=== PATIENT | male | born 1995 | race Two or more races ===

== ENCOUNTER → 2019-08-04 | Outpatient (CLI) | payer MEDICAID, SELFPAY | LOC: M OUTALCOH 08:57 | PROVIDERS: ATTEND Psychiatry & Neurology Psychiatry | DX: Z03.89 Encounter for observation for other suspected diseases and conditions ruled out (principal) ==

== ENCOUNTER 2019-08-18 15:42 | Outpatient (RCR) | payer MEDICAID | END 2019-09-15 | LOC: M OUTALCOH 15:42 | PROVIDERS: ATTEND Psychiatry & Neurology Psychiatry | DX: Z03.89 Encounter for observation for other suspected diseases and conditions ruled out (principal); F17.200 Nicotine dependence, unspecified, uncomplicated ==

== ENCOUNTER → 2019-10-05 | Outpatient (CLI) | payer MEDICAID | LOC: M OUTALCOH 08:07 | PROVIDERS: ATTEND Psychiatry & Neurology Addiction Medicine | DX: Z03.89 Encounter for observation for other suspected diseases and conditions ruled out (principal) ==

== ENCOUNTER → 2019-10-11 | Outpatient (REF) | payer MEDICAID ==
[2019-10-11 21:47] LABS: INFLUENZA A AMPLIFICATION NEGATIVE (NEGATIVE); INFLUENZA B AMPLIFICATION POSITIVE (NEGATIVE)
== END ==
LOC: M LAB REF 09:58
PROVIDERS: ATTEND Physician Assistant Medical
DX: R50.9 Fever, unspecified (principal)

== ENCOUNTER 2019-10-14 08:42 | Outpatient (RCR) | payer MEDICAID | END 2019-10-16 | LOC: M OUTALCOH 08:42 | PROVIDERS: ATTEND Psychiatry & Neurology Addiction Medicine | DX: Z03.89 Encounter for observation for other suspected diseases and conditions ruled out (principal); F17.200 Nicotine dependence, unspecified, uncomplicated ==

== ENCOUNTER 2020-08-22 14:02 | Emergency (ER) | payer MEDICAID, OTHER ==
[~2020-08-22] VITALS: Ht 170.2 cm; Wt 79.5 kg
[2020-08-22] MEDS ORDERED: CLAR10CA3 PO (14:16)
[2020-08-22] MEDS ORDERED: LIDOCAINE 1% SDV 5ML VIAL DILUENT ONE (15:00)
[2020-08-22] MEDS ORDERED: cefTRIAXone SOD 250MG VIAL (J0696 PER 250MG) IM ONE (15:00)
[2020-08-22] MEDS ORDERED: AZITHROMYCIN 250MG TABLET PO ONE (15:00)
[2020-08-22 15:55] VITALS: BP 127/73
[2020-08-22 18:19] LABS: CHLAMYDIA DNA AMPLIFICATION NEGATIVE (NEGATIVE); GC DNA AMPLIFICATION POSITIVE (NEGATIVE)
== END 2020-08-22 15:57 | disposition home or self-care (01) ==
LOC: M ED 14:02
DX: Z20.2 Contact with and (suspected) exposure to infections with a predominantly sexual mode of transmission (principal); R30.0 Dysuria; F17.200 Nicotine dependence, unspecified, uncomplicated
CPT/HCPCS: 81001; 87086; 87491; 87591; 96372; 99283; J0696

== ENCOUNTER 2020-09-23 10:43 | Emergency (ER) | payer OTHER ==
[~2020-09-23] VITALS: Ht 162.6 cm; Wt 87.9 kg
[2020-09-23 10:43] VITALS: BP 122/88
[~2020-09-23 10:43] MED LIST: CLAR10CA3 PO
--- NOTE | 2020-09-23 11:31 | REP ---
INDICATION: pain, swelling left glut, r/o abscess COMPARISON: None. TECHNIQUE: Transabdominal ultrasound examination using linear high-frequency transducer. FINDINGS: Directed ultrasound examination overlying the area of maximal swelling in the left gluteal region demonstrates 2.1 x 1.3 x 0.8 cm complex hypoechoic collection consistent with small abscess. Surrounding subcutaneous edema noted. IMPRESSION: Subcutaneous edema with small complex fluid collection likely representing abscess. <Electronically signed by Boone Mckinney > 09/23/20 1126
[2020-09-23] MEDS ORDERED: LIDOCAINE 1% MDV 20ML VIAL SC ONE (12:30)
[2020-09-23] MEDS ORDERED: DOXY100C37 PO (13:27)
[2020-09-23] MEDS ORDERED: DOXYCYCLINE HYCLATE 100MG TABLET PO ONE (13:30)
== END 2020-09-23 13:42 | disposition home or self-care (01) ==
LOC: M ED 10:43
DX: L02.31 Cutaneous abscess of buttock (principal); Z79.899 Other long term (current) drug therapy

== ENCOUNTER 2020-09-26 14:31 | Inpatient (IN) | payer OTHER ==
[~2020-09-26] VITALS: Ht 162.6 cm; Wt 77.5 kg
[~2020-09-26 14:31] MED LIST changes: +DOXY100C37 PO
[2020-09-26] MEDS ORDERED: LIDOCAINE 2% MDV 20ML VIAL SC ONE (15:30)
--- OUTSIDE RECORDS SUMMARY | 2020-09-26 15:34 | CCD ---
Author Author [facility] Organization [facility] Address Unknown Phone Unavailable Care Team Providers Care Wildlife Photographer Name Role Phone Tavon Garcia Glenn PA-C Unavailable Unavailable JoseTavon Glenn PA-C Unavailable Unavailable Jose, Tavon Glenn PA-C Unavailable Unavailable Jose, Tavon Glenn PA-C Unavailable Unavailable Jose, Tavon Glenn PA-C Unavailable Unavailable JoseTavon Glenn PA-C Unavailable Unavailable Jose, J Glenn PA-C Unavailable Unavailable Jose J Glenn PA-C Unavailable Unavailable Jose, J Glenn PA-C Unavailable Unavailable Jose, J Glenn PA-C Unavailable Unavailable Jose, J Glenn PA-C Unavailable Unavailable Jorje Whitley MD Unavailable Unavailable Jorje Whitley MD Unavailable Unavailable Jorje Whitley MD Unavailable Unavailable Jorje Whitley MD Unavailable Unavailable Jorje Whitley MD Unavailable Unavailable Jorje Whitley MD Unavailable Unavailable Jorje Whitley MD Unavailable Unavailable Jorje Whitley MD Unavailable Unavailable Jorje Whitley MD Unavailable Unavailable Jorje Whitley MD Unavailable Unavailable Jorje Whitley MD Unavailable Unavailable Jorje Whitley MD Unavailable Unavailable Jorje Whitley MD Unavailable Unavailable Jorje Whitley MD Unavailable Unavailable Jorje Whitley MD Unavailable Unavailable Roberta Whitley Moid Unavailable Unavailable WhitleyRoberta Moid MD Unavailable Unavailable WhitleyRoberta Moid Unavailable Unavailable WhitleyRoberta Moid Unavailable Unavailable WhitleyRoberta Moid Unavailable Unavailable WhitleyRoberta Moid Unavailable Unavailable Whitley Roberta Moid MD Unavailable Unavailable Whitley, Roberta Moid MD Unavailable Unavailable Whitley, Roberta Moid MD Unavailable Unavailable WhitleyJessicaul Moid Unavailable Unavailable Whitley, Roberta Moid MD Unavailable Unavailable Whitley, Roberta Moid MD Unavailable Unavailable Whitley, Roberta Moid MD Unavailable Unavailable Whitley Roberta Moid MD Unavailable Unavailable Whitley, Roberta Moid MD Unavailable Unavailable Whitley, Roberta Moid MD Unavailable Unavailable WhitleyRoberta Moid Unavailable Unavailable Roberta Whitley Moid Unavailable Unavailable Whitley Roberta Moid MD Unavailable Unavailable WhitleyRoberta Moid MD Unavailable Unavailable Whitley, Roberta Moid MD Unavailable Unavailable Roberta Whitley Moid MD Unavailable Unavailable Roberta Whitley Moid MD Unavailable Unavailable Roberta Whitley Moid MD Unavailable Unavailable WhitleyRoberta Moid MD Unavailable Unavailable WhitleyRoberta Moid MD Unavailable Unavailable Whitley, Roberta Moid MD Unavailable Unavailable Roberta Whitley Moid MD Unavailable Unavailable Roberta Whitley Moid MD Unavailable Unavailable Roberta Whitley Moid Unavailable Unavailable Roberta Whitley Moid MD Unavailable Unavailable Roberta Whitley Moid Unavailable Unavailable Jessica Whitleyul Moid MD Unavailable Unavailable Roberta Whitley Moid Unavailable Unavailable Roberta Whitley Moid Unavailable Unavailable Roberta Whitley Moid MD Unavailable Unavailable Roberta Whitley Moid Unavailable Unavailable WhitleyJessicaul Moid MD Unavailable Unavailable WhitleyJessicaul Moid MD Unavailable Unavailable Whitley, Roberta Moid MD Unavailable Unavailable WhitleyJessicaul Moid MD Unavailable Unavailable Jessica Whitleyul Moid Unavailable Unavailable Jessica Whitleyul Moid Unavailable Unavailable Jessica Whitleyul Moid Unavailable Unavailable WhitleyJessicaul Moid MD Unavailable Unavailable Jessica Whitleyul Moid Unavailable Unavailable Whitley, Roberta Moid MD Unavailable Unavailable Roberta Whitley Moid Unavailable Unavailable Gutierrez, Roberta Moid Unavailable Unavailable GRABIEL CHOE MD Unavailable Unavailable MARKWITH, GRABIEL MD Unavailable Unavailable MARKWITH, GRABIEL MD Unavailable Unavailable MARKWITH, GRABIEL MD Unavailable Unavailable MARKWITH, GRABIEL MD Unavailable Unavailable MARKWITH, GRABIEL MD Unavailable Unavailable MARKWITH, GRABIEL MD Unavailable Unavailable MARKWITH, GRABIEL MD Unavailable Unavailable MARKWITH, GRABIEL MD Unavailable Unavailable MARKWITH, GRABIEL MD Unavailable Unavailable MARKWITH, GRABIEL MD Unavailable Unavailable MARKWITH, GRABIEL MD Unavailable Unavailable MARKWITH, GRABIEL MD Unavailable Unavailable MARKWITH, GRABIEL MD Unavailable Unavailable MARKWITH, GRABIEL MD Unavailable Unavailable MARKWITH, GRABIEL MD Unavailable Unavailable MARKWITH, GRABIEL MD Unavailable Unavailable MARKWITH, GRABIEL MD Unavailable Unavailable MARKWITH, GRABIEL MD Unavailable Unavailable MARKWITH, GRABIEL MD Unavailable Unavailable MARKWITH, GRABIEL MD Unavailable Unavailable MARKWITH, GRABIEL MD Unavailable Unavailable MARKWITH, GRABIEL MD Unavailable Unavailable MARKWITH, GRABIEL MD Unavailable Unavailable MARKWITH, GRABIEL MD Unavailable Unavailable MARKWITH, GRABIEL MD Unavailable Unavailable MARKWITH, GRABIEL MD Unavailable Unavailable MARKWITH, GRABIEL MD Unavailable Unavailable MARKWITH, GRABIEL MD Unavailable Unavailable MARKWITH, GRABIEL MD Unavailable Unavailable MARKWITH, GRABIEL MD Unavailable Unavailable MARKWITH, GRABIEL MD Unavailable Unavailable MARKWITH, GRABIEL MD Unavailable Unavailable Re-disclosure Warning The records that you are about to access may contain information from federally-assisted alcohol or drug abuse programs. If such information is present, then the following federally mandated warning applies: This information has been disclosed to you from records protected by federal confidentiality rules (42 CFR part 2). The federal rules prohibit you from making any further disclosure of this information unless further disclosure is expressly permitted by the written consent of the person to whom it pertains or as otherwise permitted by 42 CFR part 2. A general authorization for the release of medical or other information is NOT sufficient for this purpose. The Federal rules restrict any use of the information to criminally investigate or prosecute any alcohol or drug abuse patient.The records that you are about to access may contain highly sensitive health information, the redisclosure of which is protected by Article 27-F of the [facility] Public Health law. If you continue you may have access to information: Regarding HIV / AIDS; Provided by facilities licensed or operated by the [facility] Office of Mental Health; or Provided by the [facility] Office for People With Developmental Disabilities. If such information is present, then the following [facility] mandated warning applies: This information has been disclosed to you from confidential records which are protected by state law. State law prohibits you from making any further disclosure of this information without the specific written consent of the person to whom it pertains, or as otherwise permitted by law. Any unauthorized further disclosure in violation of state law may result in a fine or prison sentence or both. A general authorization for the release of medical or other information is NOT sufficient authorization for further disc losure. Encounters Encounter Providers Location Date Indications Data Source(s ) Outpatient 01/20/2020 06:07:00 AM EDT [facility] Outpatient 01/01/2020 05:18:00 AM EDT [facility] Emergency Attender: Glenn YAN-CConsultant: Serenity burgos MD 11/15/2019 12:47:00 PM EST - 11/15/2019 02:07:00 PM EST [facility] Patient discharged. Outpatient Attender: GRABIEL CHOE MD Physical Therapy 01:00:00 PM EST [facility] ([facility] ) Medications Medication Brand Name Start Date Product Form Dose Route Admi nistrative Instructions Pharmacy Instructions Status Indications Reaction Description Data Source(s) 100 mg 09/23/2020 12:00:00 AM EST capsule 19 TAKE ONE CAPSULE BY MOUTH EVERY 12 HOURS TAKE ONE CAPSULE BY MOUTH EVERY 12 HOURS SOLD: 09/23/2020 [facility] 800-160 mg 04/09/2020 12:00:00 AM EDT tablet 20 TAKE ONE TABLET BY MOUTH TWICE A DAY FOR 10 DAYS TAKE ONE TABLET BY MOUTH TWICE A DAY FOR 10 DAYS SOLD: 04/09/2020 [facility] 100 mg 01/10/2020 12:00:00 AM EDT capsule 20 TAKE ONE CAPSULE BY MOUTH TWICE A DAY TAKE ONE CAPSULE BY MOUTH TWICE A DAY SOLD: 01/10/2020 [facility] 500 mg 01/05/2020 12:00:00 AM EDT capsule 20 TAKE 1 CAPSULE [500MG] BY MOUTH EVERY 8 HOURS TAKE 1 CAPSULE [500MG] BY MOUTH EVERY 8 HOURS SOLD: 01/05/2020 [facility] Oseltamivir 75 MG Oral Capsule OSELTAMIVIR PHOSPHATE 10/12/2019 12:00:00 AM EST capsule 10 TAKE ONE CAPSULE BY MOUTH TWICE A DAY FOR 5 DAYS TAKE ONE CAPSULE BY MOUTH TWICE A DAY FOR 5 DAYS SOLD: 10/12/2019 [facility] 800-160 mg 09/08/2019 12:00:00 AM EST tablet 20 TAKE ONE TABLET BY MOUTH EVERY 12 HOURS FOR 10 DAYS TAKE ONE TABLET BY MOUTH EVERY 12 HOURS FOR 10 DAYS SOLD: 09/08/2019 [facility] Acetaminophen 325 MG / Oxycodone Hydrochloride 5 MG Or al Tablet [Percocet] Percocet 08/25/2019 12:00:00 AM EST ORAL active [facility] ([facility]) Ibuprofen 600 MG Oral Tablet Ibuprofen 08/25/2019 12:00:00 AM EST ORAL active [facility] ([facility]) 5-325 mg 08/25/2019 12:00:00 AM EST tablet 30 TAKE ONE TABLET BY MOUTH EVERY 4 HOURS NEEDED FOR PAIN AFTER SURGERY MAXIMUM DAILY DOSE = 6 TABLETS TAKE ONE TABLET BY MOUTH EVERY 4 HOURS NEEDED FOR PAIN AFTER SURGERY MAXIMUM DAILY DOSE = 6 TABLETS SOLD: 08/26/2019 [facility] 800-160 mg 07/28/2019 12:00:00 AM EST tablet 20 TAKE ONE TABLET BY MOUTH EVERY 12 HOURS TAKE ONE TABLET BY MOUTH EVERY 12 HOURS SOLD: 07/28/2019 [facility] Insurance Providers Payer name Policy type / Coverage type Policy ID Covered democrat ID Covered democrat's relationship to st Policy St Plan Information [facility] [id number] SP [id number] [facility] [id number] SP [id number] [facility]) O [id number] S [id number] [facility] COMMUNITY PLAN XIX [id number] 18 [id number] SELF PAY ONLY NONE SP NONE MEDICAID [id number] SP [id number] MEDICAID [id number] SP [id number] SELF PAY ONLY [id number] SP [id number] [facility] I [id number] Self [id number] Medicaid Dental S [id number] S [id number] Managed Care [facility] P [id number] S [id number] [facility] I [id number] Self [id number] [facility] COMMUNITY PLAN [facility] [id number] SP [id number] [employer] O [id number] S 01 [id number] [facility]) O [id number] S [id number] MEDICAID [id number] SP [id number] [facility] COMMUNITY [facility] [id number] SP [id number] [facility] O [id number] S [id number] Medicaid Dental S [id number] S [id number] MEDICAID [id number] SELF [id number] Problems, Conditions, and Diagnoses Code Display Name Description Problem Type Effective Dates Data Source(s) M436 Torticollis Torticollis Diagnosis 11/15/2019 12:47:00 PM [facility] M542 Cervicalgia Cervicalgia Diagnosis 11/15/2019 12:47:00 PM [facility] Surgeries/Procedures Procedure Description Date Indications Data Source(s) Arthroscopy Knee W/Meniscus Repair (Medial Or Lateral) 08/26/2019 12:00:00 AM EST [facility] ([facility]) Unlisted Procedure, Arthroscopy 08/26/2019 12:00:00 AM EST [facility] ([facility]) MRI Lower Extremity Any Joint 07/30/2019 12:00:[address] [facility] ([facility]) Results ID Date Data Source [id number] 11/16/2019 09:41:00 AM [facility] [address] [place] [address] PHONE: [phone] FAX: [phone] Name .................. : CHEIKH Serrano Acct Number.................. : [id number] ROOM. ................. : [id number] Number ................... : [id number] Stay type ............. : E/R Discharge Date......... ... : Admit Date ......... : 11/15/19 Admit Phys .................... : JOSE NIRAJ Date of ....... : 1995 Family Phys ................... : GUTIERREZ HASKINS Phone .................. : [phone] Age ................................ : 24 Film# .................. .:[id number] Sex ................................. : M Unsigned transcriptions are preliminary reports and do not represent a medical or legal document SPINE CERVICAL AP & LAT [id number] COMPLETE:11/15/19 12:47 75885 Reason(s): Neck Pain CERVICAL SPINE SERIES: HISTORY: Neck pain. FINDINGS: Routine views show no evidence of fracture or dislocation. The vertebral bodies and disc spaces are well maintained. The pedicles and posterior elements are intact. Oblique views show no encroachment on the neural foramen. The paraspinal soft tissues appear normal. IMPRESSION: Negative cervical spine. Electronically Reviewed and Signed By Marcin Louis MD , 11/16/19 09:41, S Transcribe Initials: BRANT , Transcribe Date: 11/15/19 13:38, Dictation Date: Copy for: JOSESITO SMALLWOOD via fax Copy for: JOSE Montes De Oca via fax Copy for: EMERGENCY DEPT via [facility] Copy for: 710 MED REC DISCHARGED Page 1 of 1 Name Value Range Interpretation Code Description Data Coleen rce(s) Supporting Document(s) ID Date Data Source [id number] 11/15/2019 12:47:00 PM EST [facility] 1 OrderSheet [facility] Emergency Department [address] [place] [address] Phone #: [phone]- [phone] 11/15/2019 12:23 Patient: ELÍAS LOUIS Sex: M : 1995 Age: 24yWEIGHT:79.3 kg HEIGHT:65 inches BMI:29.1ALLERGIES: No Known Drug AllergyCHIEF COMPLAINT: neck painDIAGNOSIS: TorticollisLAB ORDERSOrder Description Priority Entered Acknowledged InitialedDIAGNOSTIC STUDY ORDERSOrder Description Priority Entered Acknowledged InitialedSpine Cervical AP STAT 12:46 11/15/2019 12:46 Jackie, Anant Monroy R.N.(Oxygen?(No)) PA; Reason for Study: Neck PainMEDICATION/IV/DRIP/FLUID ORDERSOrder Description Priority Entered Acknowledged InitialedToradol IM 30 mg 12:46 11/15/2019 12:55 Jackie, Jesica Anant YAN;Valium PO 5 mg 12:46 11/15/2019 12:53 Jackie, December Anant YAN;predniSONE PO 60 12:46 11/15/2019 12:53 Jackie, Decembermg Anant YAN;GENERAL ORDERSOrder Description Priority Entered Acknowledged Initialed[Electronically signed by Ayleen Schmid R.N. (14:19 11/15/2019)][Electronically signed by Anant Monroy (20:15 11/15/2019)][Electronically locked by Ayleen Schmid R.N. (14:19 11/15/2019)] Name Value Range Interpretation Code Description Data Coleen rce(s) Supporting Document(s) ID Date Data Source [id number] 11/15/2019 12:47:00 PM EST [facility] 1 Medication Reconciliation Report [facility] Emergency Department [address] [place] [address] Phone #: ext- [phone] 11/15/2019 12:23 Patient: ELÍAS LOUIS Sex: M : 1995 Age: 24yWeight: 79.3 kgHeight/Length: 65 in.BMI: 29.1ALLERGIES: No Known Drug AllergyThe patient's Home Medications are listed below:NONE.The source(s) of the original Home Medication information:Not obtained.The following Medications were given to the patient in the Emergency Department:Valium [PO] PO 5 mg, administered: 11/15/2019 12:53:00 PMPrednisone [PO] PO 60 mg, administered: 11/15/2019 12:53:00 PMToradol [IM] IM 30 mg, administered: 11/15/2019 12:55:00 PMThe following Medications were prescribed to the patient:IBU 800 mg tablet Take 1 tablet three times a day for 15 days -- Dispense 45 tablet. Refills: 0.Substitution permitted.[facility] [address] [place] [address]. .Medrol (Enrrique) 4 mg tablets in a dose pack Take 1 tablet as directed for 6 days -- Dispense 1 pack.Refills: 0. Substitution permitted.[facility] # [address] [place] [address]. FaxNumber: [phone].methocarbamol 500 mg tablet Take 1 tablet three times a day for 10 days -- Dispense 30 tablet. Refills:0. Substitution permitted.[facility] # [address] [place] [address]. . -- YURIY Salinas Name Value Range Interpretation Code Description Data Coleen rce(s) Supporting Document(s) ID Date Data Source [id number] 11/15/2019 12:47:00 PM EST [facility] 1 Medication Administration Record [facility] Emergency Department [address] [place] [address] Phone #: ext- [phone] 11/15/2019 12:23 Patient: ELÍAS LOUIS Sex: M : 1995 Age: 24yWeight: 79.3 kgHeight/Length: 65 inBMI: 29.1ALLERGIES: No Known Drug Allergy Date/Time Medication Administered Medication OrderedGiven TORADOL [IM] (KETOROLAC Toradol IM 30 mg12:55 11/15/2019 TROM ETHAMINE)Zoss, December, R.N. Dose: 30 mg IMGiven VALIUM [PO] (DIAZEPAM) Valium PO 5 mg12:53 11/15/2019 Dose: 5 mg POZoss, December, R.N.Given PREDNISONE [PO] predniSONE PO 60 mg12:53 11/15/2019 Dose: 60 mg POZoss, December, R.N. Name Value Range Interpretation Code Description Data Coleen rce(s) Supporting Document(s) ID Date Data Source [id number] 11/15/2019 12:47:00 PM EST [facility] 1 General Instructions [facility] Emergency Department [address] [place] [address] Phone #: ext- [phone] 11/15/2019 12:23 Patient: ELÍAS LOUIS Sex: M : 1995 Age: 24yRight-sided torticollisINSTRUCTIONSYour Current Medications: .No home medication.Prescription Medications:IBU 800 mg tablet Take 1 tablet three times a day for 15 days -- Dispense 45 tablet. Refills: 0.Substitution permitted.Pharmacy - [facility] [address] ; [place] [address]. .Medrol (Enrrique) 4 mg tablets in a dose pack Take 1 tablet as directed for 6 days -- Dispense 1 pack.Refills: 0. Substitution permitted.[facility] - [address] ; [place] [address]. FaxNumber: [phone].methocarbamol 500 mg tablet Take 1 tablet three times a day for 10 days -- Dispense 30 tablet. Refills:0. Substitution permitted.[facility] [address] [place] [address]. .Follow-up:Follow up with your doctor in three days if not better. Reason for referral: evaluation and treatment.Summary of care provided to patient.Understanding of the discharge instructions verbalized by patient. ADDITIONAL INFORMATIONNeck Pain 2 General Instructions [facility] Emergency Department [address] [place] [address] Phone #: ext- [phone] 11/15/2019 12:23 Patient: ELÍAS LOUIS Sex: M : 1995 Age: 24y There are several possible causes of neck pain when thereis no injury: You can get a minor ligament sprain or muscle strain from a sudden minor neck movement. Sleeping with your neck in an awkward position can also cause this. Some people respond to emotional stress by tensing the muscles of their neck, shoulders, and upper back. Chronic spasm in these muscles can cause neck pain and sometimes headaches. Gradual wear and tear of the joints in the spine can cause degenerative arthritis. This can be a source of occasional or chronic neck pain. The sp inal disks may bulge and put pressure on a nearby spinal nerve. This can happen as a natural result of aging or repeated small injuries to the neck. The spinal disks are the cushions between each spinal bone. This causes tingling, pain, or numbness that spreads from the neck to the shoulder, arm, or hand on one side.Acute neck pain usually gets better in 1 to 2 weeks. Neck pain related to disk disease, arthritis in thespinal joints, or spinal stenosis can become chronic and last for months or years. Spinal stenosis isnarrowing of the spinal canal.X-rays are usually not ordered for the initial evaluation of neck pain. However, X-rays may be done ifyou had a forceful physical injury, such as a car accident or fall. If pain continues and doesn't respondto medical treatment, X-rays and other tests may be done at a later time.Home care 3 General Instructions [facility] Emergency Department [address] [place] [address] Phone #: ext- [phone] 11/15/2019 12:23 [id number] Sex[facility] M : 1995 Age: 24y Rest and relax the muscles. Use a comfortable pillow that supports the head. It should also help keep the spine in a neutral position. The position of the head should not be tilted forward or backward. A rolled up towel may help for a custom fit. Some people find relief with heat. Heat can be applied with either a warm shower or bath or a moist towel heated in the microwave and massage. Others prefer cold packs. You can make an ice pack by filling a plastic bag that seals at the top with ice cubes or crushed ice and then wrapping it with a thin towel. Try both and use the method that feels best for 15 to 20 minutes, several times a day. Whether using ice or heat, be careful that you do not injure your skin. Never put ice directly on the skin. Always wrap the ice in a towel or other type of cloth.This is very important, especially in people with poor skin sensations. Try to reduce your stress level. Emotional stress can lead to neck muscle tension and get in the way of or delay the healing process. You may use [id number] pain medicine to control pain, unless another medicine was prescribed. If you have chronic liver or kidney disease or ever had a stomach ulcer or GI bleeding, talk with your healthcare provider before using these medicines.Follow-up careFollow up with your healthcare provider if your symptoms do not show signs of improvement after oneweek. Physical therapy or further tests may be needed.If X-rays, CT scans, or MRI scans were taken, you will be told of any new findings that may affectyour care.Call [phone] if you have: Sudden weakness or numbness in one or both arms Neck swelling, difficulty or painful swallowing Difficulty breathing Chest painWhen to seek medical adviceCall your healthcare provider right away if any of these occur: Pain becomes worse or spreads into one or both arm 4 General Instructions [facility] Emergency Department [address] [place] [address] Phone #: ext- [phone] 11/15/2019 12:23 Patient: ELÍAS LOUIS Sex: M : 1995 Age: 24y Increasing headache Fever of 100.4F (38C) or higher, or as directed by your healthcare provider [phone] [employer]. [address] [place] [address]. All rights reserved. This information is not intended as asubstitute for professional medical care. Always follow your healthcare professional's instructions. You have been given the following additional information: Neck Pain(Electronically signed by YURIY Salinas 11/15/2019 20:15) Name Value Range Interpretation Code Description Data Coleen rce(s) Supporting Document(s) ID Date Data Source [id number] 11/15/2019 12:47:00 PM EST [facility] 1 Clinical Report - Nurses [facility] Emergency Department [address] [place] [address] Phone #: ext- [phone] 11/15/2019 12:23 Patient: ELÍAS LOUIS Sex: M : 1995 Age: 24yTRIAGEArrived by private vehicle. ( Non traumtaic neck pain "woke up with it").Acuity: LEVEL 4.Chief Complaint: NECK PAIN. --12:27 11/15/19 Marquez Quintero R.N.12:24 11/15/19. BP: 120/77. HR: 100. RR: 16. O2 saturation: 95%. Temp: 97.7 F. Pain level now 04/25.--12:27 11/15/19 Marquez Quintero R.N.Weight: 79.3 kg. Height/Length: 65 inches. BMI: 29.1. --12:24 11/15/19 Marquez Quintero R.N.MedicationsNone. --12:26 11/15/19 Marquez Quintero R.N.AllergiesNo Known Drug Allergy. --12:25 11/15/19 Marquez Quintero R.N.PROBLEMS:no known problems.ADDITIONAL SURGERIES:Right meniscus. --12:26 11/15/19 Marquez Quintero R.N.HistorySOCIAL HX: Current every day smoker. Occasional alcohol use. History of drug use: marijuana. Hewas offered HIV testing but declined and hepatitis C testing but declined. He has not traveled outside the[place]Infectious disease exposure: No infectious disease exposure.SELF HARM ASSESSMENT: Self harm assessment was performed. The patient answered "no" to thequestion(s) "Have you recently felt down, depressed, or hopeless?", "Do you have thoughts of harming orkilling yourself?", "Do you have a plan for harming or killing yourself?", "Have you recently had thoughtsabout harming or killing others?", "Do you have any dangerous items in your possession?", "Have younoticed less interest or pleasure in doing things?", "Are you here because you tried to hurt yourself?" and"Have you ever tried to hurt yourself before today?".ABUSE ASSESSMENT: Abuse assessment. Abuse denied.NUTRITIONAL RISK ASSESSMENT: The nutritional risk assessment revealed no deficiencies. 2 Clinical Report - Nurses [facility] Emergency Department [address] [place] [address] Phone #: ext- [phone] 11/15/2019 12:23 Patient: ELÍAS LOUIS Sex: M : 1995 Age: 24y FUNCTIONAL ASSESSMENT: Functional assessment: no impairments noted. LEARNING NEEDS ASSESSMENT: The learning needs assessment revealed no barriers. FALL RISK ASSESSMENT: Fall risk assessment completed. No risk factors identified. SKIN INTEGRITY ASSESSMENT: Skin integrity risk a ssessment completed. No skin integrity risk identified. --12:27 11/15/19 Marquez Quintero R.N. Interventions Identification band on patient. To waiting room. --12:27 11/15/19 Marquez Quintero R.N.PHYSICAL ASSESSMENTGENERAL / NEURO / PSYCH: Alert. Oriented X 4. Appears in no acute distress.RESPIRATORY: Respirations not labored. Chest nontender. Breath sounds within normal limits.CVS: Normal heart rate and rhythm. Capillary refill less than 2 seconds.GI / : Abdomen soft and nontender. Bowel sounds within normal limits.EXTREMITIES: Sensation intact in extremities. ROM of extremities within normal limits.BACK: Limited ROM of the neck. --12:34 11/15/19 Marquez Quintero R.N.NURSING PROGRESS NOTES12:36 11/15/19. Patient gowned. Reassurance given. Three patient identifiers checked. Call lightplaced in reach. Side rails up x 2. Bed placed in lowest position. Brakes of bed on. Patient ready forevaluation- PA notified. --13:01 11/15/19 Ayleen Schmid R.N. 12:53 11/15/2019 Valium (diazePAM) PO 5 mg given. Allergies verified and confirmed 5 rights. Information reviewed with patient including reason for taking this medication and sedative warning. Verbalizes understanding. --12:53 11/15/19 JackieDecember, RSauloNSaulo 12:53 11/15/2019 Prednisone PO 60 mg given. Allergies verified and confirmed 5 rights. Information reviewed with patient including reason for taking this medication. Verbalizes understanding. --12:53 11/15/19 JackieDecemberMarge 12:55 11/15/2019 Toradol (Ketorolac Tromethamine) IM 30 mg given. Given in the right gluteus deneen. Allergies verified and confirmed 5 rights. Information reviewed with patient in cluding reason for taking this medication. Verbalizes understanding. --12:55 11/15/19 JackieDecember, Marge ( Pt standing next to [facility], awaiting to go to radiology). --13:19 11/15/19 Ayleen Schmid R.N. late entry - 13:25 11/15/19. Patient transported to radiology by wheelchair with tech. --13:28 11/15/19 Ayleen Schmid R.N. Patient returned from radiology by wheelchair with tech. --13:40 11/15/19 Ayleen Schmid R.N. 3 Clinical Report - Nurses [facility] Emergency Department [address] [place] [address] Phone #: ext- [phone] 11/15/2019 12:23 Patient: ELÍAS LOUIS Sex: M : 1995 Age: 24y 13:15 11/15/2019 Valium PO Response: no adverse reaction pain is improving. Symptoms have improved the patient feels better. --14:18 11/15/19 Ayleen Schmid R.N. 13:30 11/15/2019 Toradol IM Response: no adverse reaction pain is improving. Symptoms have improved the patient feels better. --14:18 11/15/19 Ayleen Schmid R.N. 14:00 11/15/2019 Prednisone PO Response: no adverse reaction pain is improving. Symptoms have improved the patient feels better. --14:18 11/15/19 Ayleen Schmid R.N.DISPOSITION / DISCHARGE Departure time: late entry - 14:07 11/15/2019. Condition at departure: stable. No learning barriers present. Discharge instructions provided and reviewed with the patient and spouse. Reviewed warnings (please see paper copy). Reviewed medication(s) side effects, precautions, dosing and course information. Prescription(s) sent electronically to pharmacy (Ibuprofen, medrol, methocarbamol). Patient verbalized understanding. Written instructions provided in Afghan. The patient was discharged by the physician bacteriology research assistant. He was discharged home and accompanied by spouse. He left ambulatory and via private vehicle. Spouse driving. --14:19 11/15/19 Ayleen Schmid R.N. 14:07 11/15/19. BP: 135/75. MAP: 95. HR: 97. RR: 18. O2 saturation: 97% on room air. Temp: 98.4 F (oral). Pain level now: 03/25. --14:19 11/15/19 Ayleen Schmid R.N.Locked/Released at 11/15/2019 14:19 by Ayleen Schmid R.N. Name Value Range Interpretation Code Description Data Coleen rce(s) Supporting Document(s) ID Date Data Source [id number] 0001 11/15/2019 12:47:00 PM [facility] 1 Clinical Report - Physicians/Mid Levels [facility] Emergency Department [address] [place] [address] Phone #: ext- [phone] 11/15/2019 12:23 [id number] Sex[facility] M : 1995 Age: 24y Time Seen: 13:50 11/15/2019. Arrived- By private vehicle. Historian- patient.HISTORY OF PRESENT ILLNESS Chief Complaint: NECK PAIN. Onset was today Non traumatic neck pain "woke up with it" and it is still present. It is described as being moderate in degree and in the area of the cervical spine. The quality is noted to be sharp and "pain". No radiation. No bladder dysfunction, bowel dysfunction or sensory loss. Patient denies an injury. Similar symptoms previously. None. Recent medical care: Not recently seen/assessed.REVIEW OF SYSTEMSNo fever, chills, eye discomfort, headache or depression. No sore throat, cough, difficulty breathing, chestpain or skin rash. No abdominal pain, nausea, vomiting, diarrhea or black stools. No difficulty withurination, urinary frequency, hematuria or bloody stools.PAST HISTORYProblems:no known problems. Additional Surgeries: Right meniscus. Medications: None. Allergies: No Known Drug Allergy.SOCIAL HISTORYNever smoker. No alcohol use or drug use.PHYSICAL EXAMVital Signs: 11/15/2019 12:24 BP: 120/77. MAP: 91. HR: 100. RR: 16. O2 saturation: 95%. Temp: 97.7 F.Have been reviewed as normal. Oxygen saturation normal.Appearance: Alert. No acute distress.HEENT: Normal external inspection.Eyes: Pupils equal, round and reactive to light.ENT: Ears normal. Pharynx normal.Neck: Pain in the neck upon movement. Muscle spasm of the neck. Decrease in ROM. No vertebral 2 Clinical Report - Physicians/Mid Levels [facility] Emergency Department [address] [place] [address] Phone #: ext- [phone] 11/15/2019 12:23 Patient: ELÍAS LOUIS Sex: M : 1995 Age: 24y tenderness. Mild soft tissue tenderness in the right upper neck area. No lymphadenopathy or meningeal signs. CVS: Normal heart rate and rhythm. Respiratory: No respiratory distress. Abdomen: Normal inspection. Back: Normal inspection. Skin: Skin warm and dry. Normal skin color. No rash. Normal skin turgor. Extremities: Extremities exhibit normal ROM. Neuro: Oriented X 3.LABS, X-RAYS, AND EKGC-Spine X-rays: No acute findings. Views: 3 view C-spine series. The X-rays were interpreted by theradiologist and contemporaneously by me. Interpretation time: 14:11/15/2019.PROGRESS AND PROCEDURESCourse of Care: 14:Nov 15 2019. Evaluation after x-rays and observation. (Discussed exam and xrayfindings and pt is agreeable with dx and tx plan.). Patient and support person counseled in person regarding the patient's stable condition, test results, diagnosis and need for follow-up. Patient and support person agrees with plan of care. 14:Nov 15 2019. Disposition: Discharged home in good and improved condition (:Nov 15 2019).CLINICAL IMPRESSION Right-sided torticollisINSTRUCTIONS Your Current Medications: . No home medication. Prescription Medications: IBU 800 mg tablet Take 1 tablet three times a day for 15 days -- Dispense 45 tablet. Refills: 0. Substitution permitted. [id number] - [address] [place] [address]. . Medrol (Enrrique) 4 mg tablets in a dose pack Take 1 tablet as directed for 6 days -- Dispense 1 pack. Refills: 0. Substitution permitted. [id number] - [address] [place] [address]. . 3 Clinical Report - Physicians/Mid Levels [facility] Emergency Department [address] [place] [address] Phone #: ext- [phone] 11/15/2019 12:23 Patient: ELÍAS LOUIS Sex: M : 1995 Age: 24y methocarbamol 500 mg tablet Take 1 tablet three times a day for 10 days -- Dispense 30 tablet. Refills: 0. Substitution permitted. Pharmacy - [id number] - [address] ; [place] [address]. . Follow-up: Follow up with your doctor in three days if not better. Reason for referral: evaluation and treatment. Summary of care provided to patient. Understanding of the discharge instructions verbalized by patient.(Electronically signed by YURIY Salinas 11/15/2019 20:15) Name Value Range Interpretation Code Description Data Coleen rce(s) Supporting Document(s) ID Date Data Source [id number] 08/11/2019 08:56:00 AM EST [facility] ([facility]) Name Value Range Interpretation Code Description Data Coleen rce(s) Supporting Document(s) Laboratory test finding (navigational concept) <pending> [facility] ([facility]) Procedure
[2020-09-26] MEDS ORDERED: NORCO, ANEXSIA 5/325MG TABLET (HYDROcodone/ACETAMINOPHEN) PO ONE (16:00)
--- NOTE | 2020-09-26 16:14 | REP ---
INDICATION: cyst on L buttock COMPARISON: None TECHNIQUE: Realtime grayscale and color evaluation using linear high-frequency transducer. FINDINGS: Ultrasound examination again demonstrates a complex avascular cystic collection measuring 5.8 x 1.9 x 4.4 cm increased from prior examination and most consistent with abscess. Correlation is required. IMPRESSION: Increased size to the complex cystic collection likely representing abscess <Electronically signed by Boone Mckinney > 09/26/20 [id number]
[2020-09-26 16:20] LABS: BASO % 0.3 % (0.0-1.0); EOS # 0.6 10^3/uL (0.0-0.5); EOS % 3.5 % (0.0-3.0); HEMATOCRIT 44.9 % (42.0-52.0); HEMOGLOBIN 14.7 g/dl (13.5-17.5); LYMPH # 2.2 10^3/uL (1.5-5.0); MEAN CORPUSCULAR HEMOGLOBIN 28.2 pg (27.0-33.0); MEAN CORPUSCULAR HGB CONC 32.7 g/dl (32.0-36.5); MONO # 1.2 10^3/uL (0.0-0.8); MONO % 7.6 % (0.0-5.0); NEUTROPHILS # 11.7 10^3/uL (1.5-8.5); NEUTROPHILS % 74.2 % (36.0-66.0); PLATELET COUNT, AUTOMATED 221 10^3/uL (150-450); RED BLOOD COUNT 5.22 10^6/uL (4.30-6.10); WHITE BLOOD COUNT 15.7 10^3/uL (4.0-10.0)
[2020-09-26 16:55] LABS: ALT/SGPT 97 U/L (12-78); BILIRUBIN,DIRECT 0.2 MG/DL (0.0-0.2); BILIRUBIN,TOTAL 0.6 MG/DL (0.2-1.0); BLOOD UREA NITROGEN 9 MG/DL (7-18); C REACTIVE PROTEIN QUANTITATIV 8.46 MG/DL (0.00-0.30); CALCIUM LEVEL 9.7 MG/DL (8.5-10.1); CARBON DIOXIDE LEVEL 23 MEQ/L (21-32); CHLORIDE LEVEL 104 MEQ/L (98-107); GLOMERULAR FILTRATION RATE > 60.0 (>60); GLUCOSE, FASTING 89 MG/DL (70-100); POTASSIUM SERUM 4.2 MEQ/L (3.5-5.1); SODIUM LEVEL 136 MEQ/L (136-145); TOTAL PROTEIN 7.7 GM/DL (6.4-8.2)
[2020-09-26 16:58] LABS: ERYTHROCYTE SEDIMENTATION RATE 43 mm/hr (0-15)
[2020-09-26] MEDS ORDERED: CLINDAMYCIN 600 MG in IV 1 EA IV ONE (17:15)
[2020-09-26 18:25] LABS: RSV AMPLIFICATION NEGATIVE (NEGATIVE)
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
[2020-09-26] MEDS ORDERED: VANCOMYCIN HCL 1,000 MG, VIAL MATE ADAPTER 1 EACH in D5W 250 ML IV ONE (21:15)
--- OUTSIDE RECORDS SUMMARY | 2020-09-26 21:30 | CCD ---
Author Author [facility] Organization [facility] Address Unknown Phone Unavailable Care Team Providers Care Tandem Mill Operator Name Role Phone Tavon Garcia Glenn PA-C [...] Unavailable Whitley, Roberta Moid MD Unavailable Unavailable WhitleyJessiacul Moid MD Unavailable Unavailable Jessica Whitleyul Moid Unavailable Unavailable Jessica Whitleyul Moid Unavailable Unavailable Jessica Whitleyul Moid Unavailable Unavailable WhitelyJessicaul Moid MD Unavailable Unavailable Jessica Whitleyul Moid [...] is protected by Article 27-F of the [facility] Public Health law. If you continue you may have access to information: Regarding HIV / AIDS; Provided by facilities licensed or operated by the [facility] Office of Mental Health; or Provided by the [facility] Office for People With Developmental Disabilities. If such information is present, then the following [facility] mandated warning applies: This information has been [...] law may result in a fine or snf sentence or both. A general authorization for the release of medical or other information is NOT sufficient authorization for further disc losure. Encounters Encounter Providers Location Date Indications Data Source(s ) Outpatient 01/20/2020 06:07:00 AM EDT [facility] Outpatient 01/01/2020 05:18:00 AM EDT [facility] Emergency Attender: Glenn YAN-CConsultant: Serenity burgos MD 11/15/2019 12:47:00 PM EST - 11/15/2019 02:07:00 PM EST [facility] Patient discharged. Outpatient Attender: GRABIEL CHOE MD Physical Therapy 01:00:00 PM EST [facility] ([facility] ) Medications Medication Brand Name [...] 08/25/2019 12:00:00 AM EST ORAL active [facility] ([facility]) Ibuprofen 600 MG Oral Tablet Ibuprofen 08/25/2019 12:00:00 AM EST ORAL active [facility] ([facility]) 5-325 mg 08/25/2019 [...] BY MOUTH EVERY 12 HOURS SOLD: 07/28/2019 [facility] Insurance Providers Payer name Policy type / Coverage type Policy ID Covered green party ID Covered green party's relationship to st Policy St Plan Information [facility] [place] [id number] SP [id number] [facility] [id number] SP [id number] [facility]([place]) O [id number] S [id number] [facility] PL[facility] XIX [id number] 18 [id number] SELF PAY ONLY NONE SP NONE MEDICAID [id number] SP [id number] MEDICAID [id number] SP [id number] SELF PAY ONLY [id number] SP [id number] [facility] I [id number] Self [id number] Medicaid Dental S [id number] S [id number] D Managed Care [facility] P [id number] S [id number] [facility] I [id number] Self [id number] [facility] [place] [id number] SP [id number] [employer] O [id number] S [id number] [facility]([place]) O [id number] S [id number] MEDICAID [id number] SP [id number] [facility] [place] [id number] SP [id number] [facility] O [id number] S [id number] Medicaid Dental S [id number] S [id number] MEDICAID [id number] SELF [id number] Problems, Conditions, and Diagnoses Code Display Name Description Problem Type Effective Dates Data Source(s) M436 Torticollis Torticollis Diagnosis 11/15/2019 12:47:00 PM [facility] M542 Cervicalgia Cervicalgia Diagnosis 11/15/2019 12:47:00 PM [facility] Surgeries/Procedures Procedure Description Date Indications Data Source(s) Arthroscopy Knee W/Meniscus Repair (Medial Or Lateral) 08/26/2019 12:00:00 AM EST [facility] ([facility]) Unlisted Procedure, Arthroscopy 08/26/2019 12:00:00 AM EST [facility] ([facility]) MRI Lower Extremity Any Joint 07/30/2019 12:00:[address] [facility] ([facility]) Results ID Date Data Source [id number] 11/16/2019 09:41:00 AM [facility] [address] [place] [address] PHONE: [phone] FAX: [phone] Name .................. : CHEIKH Serrano Acct Number.................. : [id number] ROOM. ................. : VT-02 Number ................... : [id number] Stay type ............. : E/R Discharge Date......... ... : Admit Date ......... : 11/15/19 Admit Phys .................... : JOSE NIRAJ Date of ....... : 1995 Family Phys ................... : GUTIERREZ HASKINS Phone .................. : [phone] Age ................................ : 24 Film# .................. .:[id number] Sex ................................. : M Unsigned transcriptions are preliminary reports and do not represent a medical or legal document SPINE CERVICAL AP & LAT [id number] COMPLETE:11/15/19 12:47 54405 Reason(s): Neck Pain CERVICAL SPINE SERIES: HISTORY: [...] via fax Copy for: EMERGENCY DEPT via [facility] Copy for: 710 MED REC DISCHARGED Page 1 of 1 Name Value Range Interpretation Code Description Data Coleen rce(s) Supporting Document(s) ID Date Data Source [id number] 11/15/2019 12:47:00 PM EST [facility] 1 OrderSheet [facility] Emergency Department [address] [place] [address] Phone #: [phone]- [phone] 11/15/2019 12:23 Patient: ELÍAS LOUIS Sex: M [...] rce(s) Supporting Document(s) ID Date Data Source [id number] 11/15/2019 12:47:00 PM EST [facility] 1 Medication Reconciliation Report [facility] Emergency Department [address] [place] [address] Phone #: ext- [phone] 11/15/2019 12:23 Patient: [...] days -- Dispense 45 tablet. Refills: 0.Substitution permitted.[facility] [address] [place] [address]. .Medrol (Enrrique) 4 mg tablets in a dose pack Take 1 tablet as directed for 6 days -- Dispense 1 pack.Refills: 0. Substitution permitted.[facility] # [address] [place] [address]. FaxNumber: .methocarbamol 500 mg tablet Take 1 tablet three times a day for 10 days -- Dispense 30 tablet. Refills:0. Substitution permitted.[facility] # [address] [place] [address]. . -- YURIY Salinas Name Value Range Interpretation Code Description Data Coleen rce(s) Supporting Document(s) ID Date Data Source [id number] 11/15/2019 12:47:00 PM EST [facility] 1 Medication Administration Record [facility] Emergency Department [address] [place] [address] Phone #: ext- [phone] 11/15/2019 12:23 Patient: ELÍAS LOUIS Sex: M [...] rce(s) Supporting Document(s) ID Date Data Source [id number] 11/15/2019 12:47:00 PM EST [facility] 1 General Instructions [facility] Emergency Department [address] [place] [address] Phone #: ext- [phone] 11/15/2019 12:23 Patient: ELÍAS LOUIS Sex: M : 1995 Age: 24yRight-sided torticollisINSTRUCTIONSYour Current Medications: .No home medication.Prescription Medications:IBU 800 mg tablet Take 1 tablet three times a day for 15 days -- Dispense 45 tablet. Refills: 0.Substitution permitted.Pharmacy - [facility] [address] [facility] ; [place] [address]. .Medrol (Enrrique) 4 mg tablets in a dose pack Take 1 tablet as directed for 6 days -- Dispense 1 pack.Refills: 0. Substitution permitted.[facility] [address] [facility] ; [place] [address]. FaxNumber: .methocarbamol 500 mg tablet Take 1 tablet three times a day for 10 days -- Dispense 30 tablet. Refills:0. Substitution permitted.[facility] [address] [place] [address]. .Follow-up:Follow up with your doctor in three days if not better. Reason for referral: evaluation and treatment.Summary of care provided to patient.Understanding of the discharge instructions verbalized by patient. ADDITIONAL INFORMATIONNeck Pain 2 General Instructions [facility] Emergency Department [address] [place] [address] Phone #: ext- [phone] 11/15/2019 12:23 Patient: [...] a later time.Home care 3 General Instructions [facility] Emergency Department [address] [place] [address] Phone #: ext- [phone] 11/15/2019 12:23 [id number] Sex[facility] M : 1995 Age: 24y Rest [...] delay the healing process. You may use [id number] pain medicine to control pain, unless another [...] any new findings that may affectyour care.Call [phone] if you have: Sudden weakness or numbness in one or both arms Neck swelling, difficulty or painful swallowing Difficulty breathing Chest painWhen to seek medical adviceCall your healthcare provider right away if any of these occur: Pain becomes worse or spreads into one or both arm 4 General Instructions [facility] Emergency Department [address] [place] [address] Phone #: ext- [phone] 11/15/2019 12:23 Patient: ELÍAS LOUIS Sex: M : 1995 Age: 24y Increasing headache Fever of 100.4F (38C) or higher, or as directed by your healthcare provider [id number] [employer] [place] [address]. All rights reserved. This information is not intended as asubstitute for professional medical care. Always follow your healthcare professional's instructions. You have been given the following additional information: Neck Pain(Electronically signed by YURIY Salinas 11/15/2019 20:15) Name Value Range Interpretation Code Description Data Coleen rce(s) Supporting Document(s) ID Date Data Source [id number] 11/15/2019 12:47:00 PM EST [facility] 1 Clinical Report - Nurses [facility] Emergency Department [address] [place] [address] Phone #: ext- [phone] 11/15/2019 12:23 Patient: [...] no deficiencies. 2 Clinical Report - Nurses [facility] Emergency Department [address] [place] [address] Phone #: ext- [phone] 11/15/2019 12:23 Patient: [...] JackieDecember, Marge ( Pt standing next to [facility], awaiting to go to radiology). --13:19 11/15/19 Ayleen Schmid R.N. late entry - 13:25 11/15/19. Patient transported to radiology by wheelchair with tech. --13:28 11/15/19 Ayleen Schmid R.N. Patient returned from radiology by wheelchair with tech. --13:40 11/15/19 Ayleen Schmid R.N. 3 Clinical Report - Nurses [facility] Emergency Department [address] [place] [address] Phone #: ext- [phone] 11/15/2019 12:23 Patient: [...] Patient verbalized understanding. Written instructions provided in Danish. The patient was discharged by the physician teacher's assistant. He was discharged home and accompanied [...] rce(s) Supporting Document(s) ID Date Data Source [id number] 11/15/2019 12:47:00 PM [facility] 1 Clinical Report - Physicians/Mid Levels [facility] Emergency Department [address] [place] [address] Phone #: ext- [phone] 11/15/2019 12:23 [id number] Sex: M : 1995 Age: 24y Time [...] vertebral 2 Clinical Report - Physicians/Mid Levels [facility] Emergency Department [address] [place] [address] Phone #: ext- [phone] 11/15/2019 12:23 Patient: ELÍAS LOUIS Sex: M [...] Dispense 45 tablet. Refills: 0. Substitution permitted. [facility] [address] [place] [address]. . Medrol (Enrrique) 4 mg tablets in a dose pack Take 1 tablet as directed for 6 days -- Dispense 1 pack. Refills: 0. Substitution permitted. [facility] [address] - [address] [place] [address]. . 3 Clinical Report - Physicians/Mid Levels [facility] Emergency Department [address] [place] [address] Phone #: ext- [phone] 11/15/2019 12:23 Patient: ELÍAS LOUIS Sex: M : 1995 Age: 24y methocarbamol 500 mg tablet Take 1 tablet three times a day for 10 days -- Dispense 30 tablet. Refills: 0. Substitution permitted. Pharmacy - [facility] [address] [facility] ; [place] [address]. . Follow-up: Follow up with your doctor in three days if not better. Reason for referral: evaluation and treatment. Summary of care provided to patient. Understanding of the discharge instructions verbalized by patient.(Electronically signed by YURIY Salinas 11/15/2019 20:15) Name Value Range Interpretation Code Description Data Coleen rce(s) Supporting Document(s) ID Date Data Source [id number] 08/11/2019 08:56:00 AM EST [facility] ([facility]) Name Value Range Interpretation Code Description Data Coleen rce(s) Supporting Document(s) Laboratory test finding (navigational concept) <pending> [facility] ([facility]) Procedure
[2020-09-26] MEDS: MORPHINE 2 MG/ML 1ML VIAL (J2270) IV PRN (21:38)
[2020-09-26 23:55] VITALS: BP 116/68
[2020-09-27] MEDS: MORPHINE 2 MG/ML 1ML VIAL (J2270) IV PRN ×2 (02:16→08:52)
[2020-09-27] MEDS: VANCOMYCIN HCL 1,000 MG, VIAL MATE ADAPTER 1 EACH in D5W 250 ML IV SCH ×3 (02:16→18:22)
[2020-09-27 06:00] VITALS: BP 119/70
[2020-09-27] MEDS: ENOXAPARIN 40MG/0.4ML SYRINGE (J1650 PER 10MG) SC SCH (08:48)
[2020-09-27 11:02] LABS: HEMATOCRIT 43.5 % (42.0-52.0); HEMOGLOBIN 14.4 g/dl (13.5-17.5); MEAN CORPUSCULAR HEMOGLOBIN 28.2 pg (27.0-33.0); MEAN CORPUSCULAR HGB CONC 33.1 g/dl (32.0-36.5); MEAN CORPUSCULAR VOLUME 85.3 fl (80.0-96.0); PLATELET COUNT, AUTOMATED 249 10^3/uL (150-450); WHITE BLOOD COUNT 15.2 10^3/uL (4.0-10.0)
[2020-09-27 11:33] LABS: ALBUMIN 3.7 GM/DL (3.2-5.2); ALT/SGPT 78 U/L (12-78); BILIRUBIN,TOTAL 0.6 MG/DL (0.2-1.0); BLOOD UREA NITROGEN 11 MG/DL (7-18); CALCIUM LEVEL 9.5 MG/DL (8.5-10.1); CARBON DIOXIDE LEVEL 24 MEQ/L (21-32); CHLORIDE LEVEL 102 MEQ/L (98-107); CREATININE FOR GFR 1.01 MG/DL (0.70-1.30); GLOMERULAR FILTRATION RATE > 60.0 (>60); GLUCOSE, FASTING 132 MG/DL (70-100); POTASSIUM SERUM 3.9 MEQ/L (3.5-5.1); SODIUM LEVEL 134 MEQ/L (136-145); TOTAL PROTEIN 7.5 GM/DL (6.4-8.2)
[2020-09-27 14:39] VITALS: BP 148/98
[2020-09-27] MEDS ORDERED: LIDOCAINE 1% MDV 20ML VIAL SC ONE (16:00)
[2020-09-27] MEDS ORDERED: NORCO, ANEXSIA 5/325MG TABLET (HYDROcodone/ACETAMINOPHEN) PO PRN (18:00)
[2020-09-27] MEDS ORDERED: ACETAMINOPHEN TAB 650MG DOSE (2X325MG) PO PRN (18:00)
[2020-09-27] MEDS ORDERED: MORPHINE 2 MG/ML 1ML VIAL (J2270) IV PRN (18:00)
--- NOTE | 2020-09-27 20:33 | IPNPDOC ---
Date Seen The patient was seen on 09/27/20. Progress Note SUBJECTIVE: Surgery drained abscess at bedside today. WBC remains elevated. Complains of pain localized to area of abscess. Denies chest pain, SOB, fevers, chills. OBJECTIVE: PHYSICAL EXAMINATION: VITAL SIGNS: please see below General: NAD, comfortable HEENT: PERRLA, EOMI, sclerae clear Neck: supple, normal ROM, no JVD Respiratory: lungs CTAB, no wheeze, no rales, no crackles CVS: RRR, normal S1, S2, no murmurs Abdo: soft, no masses, no hepatosplenomegaly, BS+, no rebound tenderness Extremities: no edema, pulses 2+ MSK: no joint deformities, normal ROM Skin: 3 cm abscess on L buttock, near gluteal cleft, fluctuant, tender to touch, erythematous. Neuro: no focal neuro deficits, moving all 4 extremities, CN2-12 intact. Strength 5/5 in all 4 extremities. No nystagmus. Psych: calm, cooperative, AAO x 3 LABORATORY DATA: See below. MICROBIOLOGY: BCx pending ASSESSMENT: A 25-year-old male with a history of skin abscesses on the buttocks presents with worsening pain on the left buttock secondary to a 3 cm abscess that is unremarkable, did not respond to by mouth doxycycline. Patient is started on IV vancomycin with surgical consultation for incision and drainage. PLAN: #Left buttock abscess s/p I&D drainage 09/27/20 . Recurrent abscess. - WBC 15.2 - BCx pending, wound cx not sent when drained today. Will order wound culture to obtain if suppurative, nursing order - C/w Vancomycin IV - F/u cx, daily labs, MRSA - General surgery Dr. Sims following - Wound care per surgery #DVT ppx - Lovenox DISPOSITION: Currently obs admission, will see how he does in next 24 hours. If continues to need IV abx, will make inpatient. Plan is d/c home with PT/OT. VS, I&O, 24H, Fishbone Vital Signs/I&O Vital Signs Date Time Temp Pulse Resp B/P (MAP) Pulse Ox O2 Delivery O2 Flow Rate FiO2 09/27/20 19:00 18 09/27/20 14:39 93 148/98 (115) 09/27/20 14:00 99.4 100 Room Air I&O- Last 24 Hours up to 6 AM 09/27/20 06:00 Intake Total 500 ml Output Total 100 ml Balance 400 ml Laboratory Data 24H LABS Laboratory Tests 2 09/27/20 10:35: Nucleated Red Blood Cells % (auto) 0.0, Anion Gap 8, Glomerular Filtration Rate > 60.0, Calcium Level 9.5, Total Bilirubin 0.6, Aspartate Amino Transf (AST/SGOT) 33, Alanine Aminotransferase (ALT/SGPT) 78, Alkaline Phosphatase 116, Total Protein 7.5, Albumin 3.7, Albumin/Globulin Ratio 1.0 09/27/20 12:25: Methicillin-Resist S.aureus DNA PCR NOT DETECTED 09/27/20 16:53: Vancomycin Level Trough 13.8 CBC/BMP Laboratory Tests 09/27/20 10:35 Microbiology Microbiology 09/27/20 Blood Culture, Received Pending Current Medications Current Medications Medications (Trade) Dose Ordered Sig/Zahraa Route PRN Reason Start Time Stop Time Status Last Admin Dose Admin Acetaminophen (Tylenol Tab) 650 mg Q4HP PRN PO MILD PAIN or TEMP > 100.4 09/27/20 18:00 Acetaminophen/ Hydrocodone Bitart ([place], [facility] 5/325) 1 tab Q4HP PRN PO MODERATE/SEVERE PAIN (PS 5-10) 09/27/20 18:00 09/27/20 18:30 Enoxaparin Sodium (Lovenox) 40 mg DAILY SC 09/27/20 09:00 09/27/20 08:48 Home Med (Med Rec Complete!) ASDIRECTED XX 09/26/20 20:00 09/26/20 19:50 DC Morphine Sulfate (Morphine Sulfate Inj) 2 mg Q2HP PRN IV SEVERE PAIN (PS 8-10) 09/27/20 18:00 Morphine Sulfate (Morphine Sulfate Inj) 2 mg Q4HP PRN IV MODERATE PAIN (PS 5-7) 09/26/20 21:30 09/27/20 18:08 DC 09/27/20 08:52 Vancomycin HCl 1000 mg/IV Miscellaneous Supplies 1 each/ Dextrose 270 ml @ 270 mls/hr Q8H IV 09/27/20 02:00 09/27/20 18:22 Allergies Coded Allergies: SEASONAL ALLERGIES (Verified Allergy, Mild, 08/22/20) Nasreen Sinha MD Sep 27, 2020 20:33
[2020-09-27 22:00] VITALS: BP 114/64
[2020-09-28] MEDS: VANCOMYCIN HCL 1,000 MG, VIAL MATE ADAPTER 1 EACH in D5W 250 ML IV SCH ×3 (02:24→17:23)
[2020-09-28 06:00] VITALS: BP 117/59
[2020-09-28 06:24] LABS: HEMATOCRIT 42.8 % (42.0-52.0); MEAN CORPUSCULAR HEMOGLOBIN 28.1 pg (27.0-33.0); MEAN CORPUSCULAR HGB CONC 32.7 g/dl (32.0-36.5); MEAN CORPUSCULAR VOLUME 85.8 fl (80.0-96.0); PLATELET COUNT, AUTOMATED 256 10^3/uL (150-450); RED BLOOD COUNT 4.99 10^6/uL (4.30-6.10); WHITE BLOOD COUNT 10.7 10^3/uL (4.0-10.0)
[2020-09-28 06:53] LABS: BLOOD UREA NITROGEN 8 MG/DL (7-18); CALCIUM LEVEL 8.9 MG/DL (8.5-10.1); CARBON DIOXIDE LEVEL 27 MEQ/L (21-32); CHLORIDE LEVEL 103 MEQ/L (98-107); CREATININE FOR GFR 0.91 MG/DL (0.70-1.30); GLOMERULAR FILTRATION RATE > 60.0 (>60); GLUCOSE, FASTING 92 MG/DL (70-100); SODIUM LEVEL 137 MEQ/L (136-145)
[2020-09-28] MEDS: ENOXAPARIN 40MG/0.4ML SYRINGE (J1650 PER 10MG) SC SCH (09:24)
[2020-09-28 14:00] VITALS: BP 118/59
--- NOTE | 2020-09-28 18:16 | IPNPDOC ---
Date Seen The patient was seen on 09/28/20. Progress Note SUBJECTIVE: WBC improving, afebrile. Lanced abscess appears smaller in size but still very indurated and tender to touch, warm. Denies chest pain, SOB, fevers, chills. OBJECTIVE: PHYSICAL EXAMINATION: VITAL SIGNS: please see below General: NAD, comfortable HEENT: PERRLA, EOMI, sclerae clear Neck: supple, normal ROM, no JVD Respiratory: lungs CTAB, no wheeze, no rales, no crackles CVS: RRR, normal S1, S2, no murmurs Abdo: soft, no masses, no hepatosplenomegaly, BS+, no rebound tenderness Extremities: no edema, pulses 2+ MSK: no joint deformities, normal ROM Skin: 3 cm abscess on L buttock, near gluteal cleft, large lanced central area, slightly suppurative, tender to touch, erythematous. Neuro: no focal neuro deficits, moving all 4 extremities, CN2-12 intact. Strength 5/5 in all 4 extremities. No nystagmus. Psych: calm, cooperative, AAO x 3 LABORATORY DATA: See below. MICROBIOLOGY: BCx NG thus far Wound culture 09/27/20: pending results ASSESSMENT: A 25-year-old male with a history of skin abscesses on the buttocks presents with worsening pain on the left buttock secondary to a 3 cm abscess that is unremarkable, did not respond to by mouth doxycycline. Patient is start ed on IV vancomycin with surgical consultation for incision and drainage. PLAN: #Recurrent left buttock abscess s/p I&D drainage 09/27/20 - WBC 10.7, afebrile - BCx NG, wound cx pending- will need to have results of this prior to discharging home. - MRSA neg - F/u daily CBC, BMP - C/w Vancomycin IV, pain control. When swelling, redness and induration improve can transition to PO - General surgery Dr. Sims following - Wound care #DVT ppx - Lovenox DISPOSITION: OOBTC with meals and during day. Plan is d/c home when medically improved. VS, I&O, 24H, Fishbone Vital Signs/I&O Vital Signs Date Time Temp Pulse Resp B/P (MAP) Pulse Ox O2 Delivery O2 Flow Rate FiO2 09/28/20 14:00 98.3 66 17 118/59 (78) 97 Room Air I&O- Last 24 Hours up to 6 AM 09/28/20 06:00 Intake Total 1210 ml Output Total 325 ml Balance 885 ml Laboratory Data 24H LABS Laboratory Tests 2 09/28/20 06:07: Nucleated Red Blood Cells % (auto) 0.0, Anion Gap 7L, Glomerular Filtration Rate > 60.0, Calcium Level 8.9 09/28/20 16:55: Vancomycin Level Trough 11.6 CBC/BMP Laboratory Tests 09/28/20 06:07 Microbiology Microbiology 09/27/20 Wound Culture, Received Pending 09/27/20 Blood Culture - Preliminary, Resulted No growth after 24 hours . All specim... Current Medications Current Medications Medications (Trade) Dose Ordered Sig/Zahraa Route PRN Reason Start Time Stop Time Status Last Admin Dose Admin Acetaminophen (Tylenol Tab) 650 mg Q4HP PRN PO MILD PAIN or TEMP > 100.4 09/27/20 18:00 Acetaminophen/ Hydrocodone Bitart ([place], [facility]nex[facility] 5/325) 1 tab Q4HP PRN PO MODERATE/SEVERE PAIN (PS 5-10) 09/27/20 18:00 09/27/20 18:30 Enoxaparin Sodium (Lovenox) 40 mg DAILY SC 09/27/20 09:00 09/28/20 09:24 Home Med (Med Rec Complete!) ASDIRECTED XX 09/26/20 20:00 09/26/20 19:50 DC Morphine Sulfate (Morphine Sulfate Inj) 2 mg Q2HP PRN IV SEVERE PAIN (PS 8-10) 09/27/20 18:00 Morphine Sulfate (Morphine Sulfate Inj) 2 mg Q4HP PRN IV MODERATE PAIN (PS 5-7) 09/26/20 21:30 09/27/20 18:08 DC 09/27/20 08:52 Vancomycin HCl 1000 mg/IV Miscellaneous Supplies 1 each/ Dextrose 270 ml @ 270 mls/hr Q8H IV 09/27/20 02:00 09/28/20 17:23 Allergies Coded Allergies: SEASONAL ALLERGIES (Verified Allergy, Mild, 08/22/20) Nasreen Sinha MD Sep 28, 2020 18:16
[2020-09-28 22:00] VITALS: BP 135/68
[2020-09-28] MEDS: VANCOMYCIN HCL 750 MG, VIAL MATE ADAPTER 1 EACH in D5W 250 ML IV SCH (23:12)
[2020-09-29] MEDS: VANCOMYCIN HCL 500 MG in D5W MINI-BAG PLUS 100 ML IV SCH ×3 (00:52→17:35)
[2020-09-29 06:00] VITALS: BP 134/73
[2020-09-29 06:29] LABS: HEMATOCRIT 40.3 % (42.0-52.0); HEMOGLOBIN 13.1 g/dl (13.5-17.5); MEAN CORPUSCULAR HEMOGLOBIN 27.8 pg (27.0-33.0); MEAN CORPUSCULAR HGB CONC 32.5 g/dl (32.0-36.5); MEAN CORPUSCULAR VOLUME 85.4 fl (80.0-96.0); PLATELET COUNT, AUTOMATED 267 10^3/uL (150-450); RED BLOOD COUNT 4.72 10^6/uL (4.30-6.10); WHITE BLOOD COUNT 9.5 10^3/uL (4.0-10.0)
[2020-09-29 06:50] LABS: BLOOD UREA NITROGEN 9 MG/DL (7-18); CALCIUM LEVEL 9.3 MG/DL (8.5-10.1); CARBON DIOXIDE LEVEL 27 MEQ/L (21-32); CHLORIDE LEVEL 104 MEQ/L (98-107); CREATININE FOR GFR 0.87 MG/DL (0.70-1.30); GLOMERULAR FILTRATION RATE > 60.0 (>60); GLUCOSE, FASTING 92 MG/DL (70-100); POTASSIUM SERUM 4.3 MEQ/L (3.5-5.1); SODIUM LEVEL 136 MEQ/L (136-145)
[2020-09-29] MEDS: VANCOMYCIN HCL 750 MG, VIAL MATE ADAPTER 1 EACH in D5W 250 ML IV SCH ×2 (07:54→16:28)
[2020-09-29] MEDS: ENOXAPARIN 40MG/0.4ML SYRINGE (J1650 PER 10MG) SC SCH (09:08)
[2020-09-29 14:00] VITALS: BP 152/86
--- NOTE | 2020-09-29 15:26 | IPNPDOC ---
Date Seen The patient was seen on 09/29/20. Progress Note SUBJECTIVE: WBC wnl this AM for first time since admission, afebrile. Lanced abscess appears still very indurated and tender to touch, warm. Wound culture growing multiple organisms, no official sensitivies until 10/01 per lab. Denies chest pain, SOB, fevers, chills. OBJECTIVE: PHYSICAL EXAMINATION: VITAL SIGNS: please see below General: NAD, comfortable HEENT: PERRLA, EOMI, sclerae clear Neck: supple, normal ROM, no JVD Respiratory: lungs CTAB, no wheeze, no rales, no crackles CVS: RRR, normal S1, S2, no murmurs Abdo: soft, no masses, no hepatosplenomegaly, BS+, no rebound tenderness Extremities: no edema, pulses 2+ MSK: no joint deformities, normal ROM Skin: L buttock abscess, near gluteal cleft, large lanced central area, slightly suppurative, tender to touch, erythematous. Neuro: no focal neuro deficits, moving all 4 extremities, CN2-12 intact. Strength 5/5 in all 4 extremities. No nystagmus. Psych: calm, cooperative, AAO x 3 LABORATORY DATA: See below. MICROBIOLOGY: BCx NG thus far Wound culture 09/27/20: pending official results but according to lab multiple organisms growing ASSESSMENT: A 25-year-old male with a history of skin abscesses on the buttocks presents with worsening pain on the left buttock secondary to a 3 cm abscess that is unremarkable, did not respond to by mouth doxycycline. Patient is started on IV vancomycin with surgical consultation for incision and drainage. PLAN: #Recurrent left buttock abscess s/p I&D drainage 09/27/20 - WBC wnl, afebrile - BCx NG, wound cx prelim growing multiple organisms per lab when called - will need to have results of this prior to discharging home, likely 10/01/20 - MRSA neg - F/u daily CBC, BMP - C/w Vancomycin IV, pain control. - General surgery Dr. Sims has seen patient - Wound care #DVT ppx - Lovenox DISPOSITION: OOBTC with meals and during day. Plan is d/c home when medically improved. VS, I&O, 24H, Fishbone Vital Signs/I&O Vital Signs Date Time Temp Pulse Resp B/P (MAP) Pulse Ox O2 Delivery O2 Flow Rate FiO2 09/29/20 06:00 98.7 65 18 134/73 (93) 99 Room Air I&O- Last 24 Hours up to 6 AM 09/29/20 06:00 Intake Total 2995 ml Output Total 700 ml Balance 2295 ml Laboratory Data 24H LABS Laboratory Tests 2 09/28/20 16:55: Vancomycin Level Trough 11.6 09/29/20 05:54: Nucleated Red Blood Cells % (auto) 0.0, Anion Gap 5L, Glomerular Filtration Rate > 60.0, Calcium Level 9.3 CBC/BMP Laboratory Tests 09/29/20 05:54 Microbiology Microbiology 09/27/20 Wound Culture, Received Pending 09/27/20 Blood Culture - Preliminary, Resulted No Growth after 48 hours. All Specime... Current Medications Current Medications Medications (Trade) Dose Ordered Sig/Zahraa Route PRN Reason Start Time Stop Time Status Last Admin Dose Admin Acetaminophen (Tylenol Tab) 650 mg Q4HP PRN PO MILD PAIN or TEMP > 100.4 09/27/20 18:00 Acetaminophen/ Hydrocodone Bitart ([place], Anexsia 5/325) 1 tab Q4HP PRN PO MODERATE/SEVERE PAIN (PS 5-10) 09/27/20 18:00 09/27/20 18:30 Enoxaparin Sodium (Lovenox) 40 mg DAILY SC 09/27/20 09:00 09/29/20 09:08 Home Med (Med Rec Complete!) ASDIRECTED XX 09/26/20 20:00 09/26/20 19:50 DC Morphine Sulfate (Morphine Sulfate Inj) 2 mg Q2HP PRN IV SEVERE PAIN (PS 8-10) 09/27/20 18:00 Morphine Sulfate (Morphine Sulfate Inj) 2 mg Q4HP PRN IV MODERATE PAIN (PS 5-7) 09/26/20 21:30 09/27/20 18:08 DC 09/27/20 08:52 Vancomycin HCl 500 mg/Dextrose 110 ml @ 110 mls/hr Q8H IV 09/29/20 01:00 09/29/20 09:08 Vancomycin HCl 750 mg/IV Miscellaneous Supplies 1 each/ Dextrose 275 ml @ 275 mls/hr Q8H IV 09/29/20 00:00 09/29/20 07:54 Vancomycin HCl 1000 mg/IV Miscellaneous Supplies 1 each/ Dextrose 270 ml @ 270 mls/hr Q8H IV 09/27/20 02:00 09/28/20 22:19 DC 09/28/20 17:23 Allergies Coded Allergies: SEASONAL ALLERGIES (Verified Allergy, Mild, 08/22/20) Nasreen Sinha MD Sep 29, 2020 15:26
[2020-09-29 22:00] VITALS: BP 120/57
[2020-09-30] MEDS: VANCOMYCIN HCL 750 MG, VIAL MATE ADAPTER 1 EACH in D5W 250 ML IV SCH ×3 (00:09→16:38)
[2020-09-30] MEDS: VANCOMYCIN HCL 500 MG in D5W MINI-BAG PLUS 100 ML IV SCH ×3 (00:10→18:01)
[2020-09-30 06:00] VITALS: BP 120/62
[2020-09-30] MEDS: ENOXAPARIN 40MG/0.4ML SYRINGE (J1650 PER 10MG) SC SCH (08:20)
[2020-09-30 09:26] LABS: HEMATOCRIT 41.9 % (42.0-52.0); HEMOGLOBIN 13.6 g/dl (13.5-17.5); MEAN CORPUSCULAR HGB CONC 32.5 g/dl (32.0-36.5); MEAN CORPUSCULAR VOLUME 86.2 fl (80.0-96.0); PLATELET COUNT, AUTOMATED 321 10^3/uL (150-450); RED BLOOD COUNT 4.86 10^6/uL (4.30-6.10); WHITE BLOOD COUNT 9.3 10^3/uL (4.0-10.0)
[2020-09-30 09:44] LABS: BLOOD UREA NITROGEN 10 MG/DL (7-18); CALCIUM LEVEL 9.7 MG/DL (8.5-10.1); CARBON DIOXIDE LEVEL 32 MEQ/L (21-32); CHLORIDE LEVEL 104 MEQ/L (98-107); GLOMERULAR FILTRATION RATE > 60.0 (>60); GLUCOSE, FASTING 96 MG/DL (70-100); POTASSIUM SERUM 4.3 MEQ/L (3.5-5.1); SODIUM LEVEL 139 MEQ/L (136-145)
--- NOTE | 2020-09-30 12:53 | IPN ---
PROGRESS NOTE DATE: 09/30/2020 SUBJECTIVE: The patient is now postop day #3 from a bedside incision and drainage of a large perirectal abscess. He has remained on antibiotics. Culture result from his wound is pending. He reports that his discomfort is significantly improved. OBJECTIVE: VITAL SIGNS: Show that he is afebrile over the past 24 hours. His pulse is in the 60s and 70s and his blood pressure is good. INTAKE AND OUTPUT: Shows that his intake yesterday was 1645 with 650 mL of urine output recorded. SKIN: Shows that he still has some significant induration surrounding the area of his drainage. The tenderness is clearly significantly reduced. IMPRESSION: The patient has a large abscess on the medial left buttock, which I think is most likely a perirectal abscess and not just a simple skin infection. He reports that he has had an infection several times in this exact same area, which would suggest the possibility of an underlying [id number] as a potential source for his abscess. RECOMMENDATIONS: The patient should continue with warm soaks and compresses at least three or four times daily. Antibiotics would certainly be appropriate. He will need to follow-up ultimately for further evaluation to determine if there is any evidence of a fistula that would require surgical intervention.
[2020-09-30 14:00] VITALS: BP 141/83
--- NOTE | 2020-09-30 17:32 | IPNPDOC ---
Date Seen The patient was seen on 09/30/20. Progress Note SUBJECTIVE: Afebrile, wound culture pending. Tenderness improving. Denies chest pain, SOB, fevers, chills. OBJECTIVE: PHYSICAL EXAMINATION: VITAL SIGNS: please see below General: NAD, comfortable HEENT: PERRLA, EOMI, sclerae clear Neck: supple, normal ROM, no JVD Respiratory: lungs CTAB, no wheeze, no rales, no crackles CVS: RRR, normal S1, S2, no murmurs Abdo: soft, no masses, no hepatosplenomegaly, BS+, no rebound tenderness Extremities: no edema, pulses 2+ MSK: no joint deformities, normal ROM Skin: L buttock abscess, near gluteal cleft, large lanced central area, slightly suppurative, tender to touch, erythematous- improving slowly . Neuro: no focal neuro deficits, moving all 4 extremities, CN2-12 intact. Strength 5/5 in all 4 extremities. No nystagmus. Psych: calm, cooperative, AAO x 3 LABORATORY DATA: See below. MICROBIOLOGY: BCx NG thus far Wound culture 09/27/20: pending official results but according to lab multiple organisms growing ASSESSMENT: A 25-year-old male with a history of skin abscesses on the buttocks presents with worsening pain on the left buttock secondary to a 3 cm abscess that is unremarkable, did not respond to by mouth doxycycline. Patient is started on IV vancomycin with surgical consultation for incision and drainage. PLAN: #Recurrent left buttock perirectal abscess s/p I&D drainage 09/27/20 - WBC wnl, afebrile - BCx NG, wound cx prelim growing multiple organisms per lab when called - will need to have results of this prior to discharging home, likely 10/01/20 - MRSA neg - F/u daily CBC, BMP - C/w Vancomycin IV, pain control. - General surgery Dr. Sims has seen patient. Recommends patient should continue with warm soaks and compresses at least three or four times daily. He will need to follow-up with surgery after discharge for further evaluation to determine if there is any evidence of a fistula that would require surgical intervention. #DVT ppx - Lovenox DISPOSITION: OOBTC with meals and during day. Plan is d/c home when culture result returns. VS, I&O, 24H, Fishbone Vital Signs/I&O Vital Signs Date Time Temp Pulse Resp B/P (MAP) Pulse Ox O2 Delivery O2 Flow Rate FiO2 09/30/20 14:00 96.3 81 18 141/83 (102) 99 Room Air I&O- Last 24 Hours up to 6 AM 09/30/20 05:59 Intake Total 1260 ml Output Total 950 ml Balance 310 ml Laboratory Data 24H LABS Laboratory Tests 2 09/30/20 08:32: Nucleated Red Blood Cells % (auto) 0.0, Anion Gap 3L, Glomerular Filtration Rate > 60.0, Calcium Level 9.7 CBC/BMP Laboratory Tests 09/30/20 08:32 Microbiology Microbiology 09/27/20 Wound Culture, Received Pending 09/27/20 Blood Culture - Preliminary, Resulted No Growth after 72 hours. All specime... Current Medications Current Medications Medications (Trade) Dose Ordered Sig/Zahraa Route PRN Reason Start Time Stop Time Status Last Admin Dose Admin Acetaminophen (Tylenol Tab) 650 mg Q4HP PRN PO MILD PAIN or TEMP > 100.4 09/27/20 18:00 Acetaminophen/ Hydrocodone Bitart ([place], [place] 5/325) 1 tab Q4HP PRN PO MODERATE/SEVERE PAIN (PS 5-10) 09/27/20 18:00 09/27/20 18:30 Enoxaparin Sodium (Lovenox) 40 mg DAILY SC 09/27/20 09:00 09/30/20 08:20 Home Med (Med Rec Complete!) ASDIRECTED XX 09/26/20 20:00 09/26/20 19:50 DC Morphine Sulfate (Morphine Sulfate Inj) 2 mg Q2HP PRN IV SEVERE PAIN (PS 8-10) 09/27/20 18:00 Morphine Sulfate (Morphine Sulfate Inj) 2 mg Q4HP PRN IV MODERATE PAIN (PS 5-7) 09/26/20 21:30 09/27/20 18:08 DC 09/27/20 08:52 Vancomycin HCl 500 mg/Dextrose 110 ml @ 110 mls/hr Q8H IV 09/29/20 01:00 09/30/20 09:50 Vancomycin HCl 750 mg/IV Miscellaneous Supplies 1 each/ Dextrose 275 ml @ 275 mls/hr Q8H IV 09/29/20 00:00 1/15/21 16:38 Vancomycin HCl 1000 mg/IV Miscellaneous Supplies 1 each/ Dextrose 270 ml @ 270 mls/hr Q8H IV 09/27/20 02:00 09/28/20 22:19 DC 09/28/20 17:23 Allergies Coded Allergies: SEASONAL ALLERGIES (Verified Allergy, Mild, 08/22/20) Nasreen Sinha MD Sep 30, 2020 17:32
[2020-09-30 22:00] VITALS: BP 136/78
[2020-10-01] MEDS: VANCOMYCIN HCL 750 MG, VIAL MATE ADAPTER 1 EACH in D5W 250 ML IV SCH ×2 (00:10→08:51)
[2020-10-01] MEDS: VANCOMYCIN HCL 500 MG in D5W MINI-BAG PLUS 100 ML IV SCH ×2 (01:26→08:51)
[2020-10-01 06:00] VITALS: BP 137/76
[2020-10-01 07:16] LABS: HEMOGLOBIN 13.1 g/dl (13.5-17.5); MEAN CORPUSCULAR HEMOGLOBIN 27.7 pg (27.0-33.0); MEAN CORPUSCULAR HGB CONC 32.8 g/dl (32.0-36.5); MEAN CORPUSCULAR VOLUME 84.6 fl (80.0-96.0); PLATELET COUNT, AUTOMATED 315 10^3/uL (150-450); RED BLOOD COUNT 4.73 10^6/uL (4.30-6.10); WHITE BLOOD COUNT 9.2 10^3/uL (4.0-10.0)
[2020-10-01 07:40] LABS: ALBUMIN 3.4 GM/DL (3.2-5.2); ALT/SGPT 70 U/L (12-78); BILIRUBIN,TOTAL 0.2 MG/DL (0.2-1.0); BLOOD UREA NITROGEN 9 MG/DL (7-18); CALCIUM LEVEL 9.1 MG/DL (8.5-10.1); CARBON DIOXIDE LEVEL 26 MEQ/L (21-32); CHLORIDE LEVEL 106 MEQ/L (98-107); CREATININE FOR GFR 0.86 MG/DL (0.70-1.30); GLOMERULAR FILTRATION RATE > 60.0 (>60); GLUCOSE, FASTING 88 MG/DL (70-100); POTASSIUM SERUM 4.4 MEQ/L (3.5-5.1); SODIUM LEVEL 137 MEQ/L (136-145); TOTAL PROTEIN 7.2 GM/DL (6.4-8.2); VANCOMYCIN LEVEL TROUGH 15.3 UG/ML (10.0-20.0)
[2020-10-01] MEDS: ENOXAPARIN 40MG/0.4ML SYRINGE (J1650 PER 10MG) SC SCH (08:52)
[2020-10-01] MEDS ORDERED: ACET1TAB55 PO (09:37)
[2020-10-01] MEDS ORDERED: BACT800T5 PO (09:37)
[2020-10-01] MEDS ORDERED: PROB250C PO (09:37)
--- NOTE | 2020-10-01 14:05 | DS.PDOC ---
Discharge Summary General Date of Admission Sep 28, 2020 at 08:30 Date of Discharge 10/01/20 Attending Physician: Nasreen Sinha MD Discharge Summary HISTORY OF PRESENT ILLNESS: 25-year-old male with a history of recurrent left gluteal skin abscesses presenting with new onset left buttock pain. He was seen in ER on 09/23/20 for a left gluteal cellulitis/abscess, right near the gluteal cleft, patient was DC on PO doxycycline. Patient now returns with worsening pain and subjective chills. The patient is afebrile but has a white count of 15.7. ESR 43 DRP 8.4. 6. LA 1.5. Patient was admitted to hospitalist service. Started on IV vancomycin. Dr. Sims was assaulted from the ER and will be seeing the patient for possible incision and drainage of the left gluteal abscess. HOSPITAL COURSE: Patient had I&D drainage of perirectal abscess on 09/27/20. Wound culture was sent. WBC continued to improved on IV abx, pain improved as well. MRSA neg. On 10/01/20 wound culture grew staph coag neg bacteria, patient was placed on bactrim 2 tabs Po BID x [address] Sims has seen patient. Recommends patient should continue with warm soaks and compresses at least three or four times daily. He will need to follow-up with surgery after discharge for further evaluation to determine if there is any evidence of a fistula that would require surgical intervention. If area of swelling, redness and pain should increase or worsen, he should notify a medical professional of change. At time of discharge on 10/01/20 he had no complaints. PAST MEDICAL HISTORY: Patient denies prior medical history PAST SURGICAL HISTORY: Denies prior surgical history SOCIAL HISTORY: Occasional marijuana use. Occasional alcohol use Tobacco use FAMILY HISTORY: Reviewed with patient, no pertinent family history ALLERGIES: Please see below. DISCHARGE MEDICATIONS: Please see below. PHYSICAL EXAMINATION: VITAL SIGNS: please see below General: NAD, comfortable HEENT: PERRLA, EOMI, sclerae clear Neck: supple, normal ROM, no JVD Respiratory: lungs CTAB, no wheeze, no rales, no crackles CVS: RRR, normal S1, S2, no murmurs Abdo: soft, no masses, no hepatosplenomegaly, BS+, no rebound tenderness Extremities: no edema, pulses 2+ MSK: no joint deformities, normal ROM Skin: L buttock abscess, near gluteal cleft, large lanced central area, slightly suppurative, tender to touch, erythematous- much improved but still present . Neuro: no focal neuro deficits, moving all 4 extremities, CN2-12 intact. Strength 5/5 in all 4 extremities. No nystagmus. Psych: calm, cooperative, AAO x 3 LABORATORY DATA: See below. MICROBIOLOGY: BCx NG Wound culture: Staph coag neg Wound culture 09/27/20: pending official results but according to lab multiple organisms growing ASSESSMENT: A 25-year-old male with a history of skin abscesses on the buttocks presents with worsening pain on the left buttock secondary to a 3 cm abscess that is unremarkable, did not respond to by mouth doxycycline. Patient is started on IV vancomycin with surgical consultation for incision and drainage. PLAN: #Recurrent left buttock perirectal abscess s/p I&D drainage 09/27/20 - WBC wnl, afebrile - BCx NG, wound cx : Staph coag neg - Treated with Vancomycin IV, pain control. - General surgery Dr. Sims has seen patient. Recommends patient should continue with warm soaks and compresses at least three or four times daily. He will need to follow-up with surgery after discharge for further evaluation to determine if there is any evidence of a fistula that would require surgical intervention. -D/c home and advised to f/u with PCP after weekend as well. DISPOSITION: C/w abx as o/p, f/u with both surgery and PCP. TIME SPENT ON DISCHARGE: Greater than 30 minutes. Vital Signs/I&Os Vital Signs Date Time Temp Pulse Resp B/P (MAP) Pulse Ox O2 Delivery O2 Flow Rate FiO2 10/01/20 06:00 98.7 67 19 137/76 (96) 100 Room Air I&O- Last 24 Hours up to 6 AM 10/01/20 06:00 Intake Total 3190 ml Output Total 900 ml Balance 2290 ml Laboratory Data Labs 24H Laboratory Tests 2 10/01/20 06:54: Nucleated Red Blood Cells % (auto) 0.0, Anion Gap 5L, Glomerular Filtration Rate > 60.0, Calcium Level 9.1, Total Bilirubin 0.2, Aspartate Amino Transf (AST/SGOT) 27, Alanine Aminotransferase (ALT/SGPT) 70, Alkaline Phosphatase 99, Total Protein 7.2, Albumin 3.4, Albumin/Globulin Ratio 0.9, Vancomycin Level Trough 15.3 CBC/BMP Laboratory Tests 10/01/20 06:54 Microbiology Microbiology 09/27/20 Wound Culture - Final, Complete Staphylococcus Sp Coag Neg Staphylococcus Sp Coag Neg#2 09/27/20 Blood Culture - Preliminary, Resulted No Growth after 72 hours. All specime... Discharge Medications Scheduled Saccharomyces Boulardii (Probiotic) 250 Mg Capsule, 1 CAP PO BIDWM Sulfamethoxazole/Trimethoprim (Bactrim Ds Tablet) 1 Each Tablet, 2 TAB PO BID Scheduled PRN Acetaminophen (Acetaminophen) 325 Mg Tablet, 650 MG PO Q6HP PRN for MILD PAIN or TEMP > 100.4 Allergies Coded Allergies: SEASONAL ALLERGIES (Verified Allergy, Mild, 08/22/20) Nasreen Sinha MD Oct 01, 2020 14:05
--- NOTE | 2020-10-03 10:22 | CR ---
CONSULTATION DATE: 09/27/2020 REASON FOR CONSULTATION: Left buttock abscess. HISTORY OF PRESENT ILLNESS: The patient is a 25-year-old man who was brought into the hospital on the 26 of September by the Hospitalist Service for management of left buttock abscess. The patient reports that he has had several episodes of an abscess in the same location previously. He reports that these have been treated at [facility] but in looking in the medical record I do not find past visits to the hospital for this problem. He reports the last one may have been 6 months ago. He had been seen in the emergency department on the 23 of September for what was described as a several day history of developing area of tenderness and pain in the left buttock near the gluteal cleft. He had undergone an incision and drainage procedure at that time and was discharged home on Doxycycline. He returned to the ER on the reporting that the area had gotten worse despite taking the oral antibiotics. I am now consulted to evaluate the patient regarding the need for further incision and drainage. An ultrasound on the had revealed a 2 x 1.3 x 0.8 cm abscess. In the emergency department on the a repeat ultrasound revealed 5.8 x 1.9 x 4.4 cm abscess. MEDICAL HISTORY: Significant only for some environmental allergies. SURGICAL HISTORY: Negative. FAMILY HISTORY: Reveals no pertinent underlying medical illnesses. SOCIAL HISTORY: He admits to occasional alcohol and marijuana. ALLERGIES: THE PATIENT DENIES ANY DRUG ALLERGIES. MEDICATIONS: Only medications at the time of admission included Loratadine and the Doxycycline. REVIEW OF SYSTEMS: No history of cardiac, respiratory, GI, , hematologic or endocrine problems. PHYSICAL EXAMINATION: GENERAL: The patient is a pleasant young man looking uncomfortable and lying quietly on the hospital bed. VITAL SIGNS: Most recently show temperature 99.4, pulse 78, respirations 16 and his room air oxygen saturation is normal. HEART: Regular rate and rhythm. LUNGS: Clear. ABDOMEN: Soft and nontender. BUTTOCKS: Raised area about 4-5 cm across at the edge of the gluteal cleft of the left buttock. There is marked induration over an area perhaps 8 to as much as 10 cm in diameter. There is a suggestion of some fluctuance particularly on the medial aspect of this area of induration and even extending toward the perianal area on the left-hand side. There is no evidence of any induration, redness or tenderness on the right side of the perineum. There is significant tenderness beginning near the perianal area and extending laterally into the large area of swelling and induration. There does not appear to be any significant drainage at present. LABORATORY STUDIES: On showed white count of 16 with 74% neutrophils and 14% lymphocytes. On the morning of the white count was still 15 thousand with hemoglobin of 14, hematocrit 44. Chemistries on showed normal electrolytes with the exception of sodium of 134. Glucose was minimally elevated at 132 for non-fasting specimen. Liver function tests were all normal. C-reactive protein on afternoon of was 8.5. IMPRESSION: The patient has a large abscess of the left medial buttock area. This does seem to track toward the perianal area. Given his report that he has had several abscesses in this exact same area previously, I suspect that this may well represent a perirectal abscess rather than a skin structure abscess. At this point the abscess appears prominent enough that we could proceed with bedside incision and drainage with local anesthesia. He should remain on antibiotics. Ultimately he will need to be followed to see if he has evidence for an underlying fistula in ano that would make him likely to have continuing problems in this area. PLAN: The patient was counseled for bedside incision and drainage under local anesthesia and he is agreeable with this plan. A separate note will be dictated covering this procedure. Once the incision and drainage is done he should continue with warm moist compresses or soaks in the tub or showers to this area at least 3-4 times per day for 10-15 minutes and should remain on antibiotics.
--- NOTE | 2020-10-03 13:05 | RO ---
OPERATIVE NOTE DATE OF OPERATION: 09/27/2020 PREOPERATIVE DIAGNOSIS: Left buttock abscess, possible perirectal abscess. POSTOPERATIVE DIAGNOSIS: Left buttock abscess, possible perirectal abscess. PROCEDURE: Incision and drainage of left buttock abscess under local anesthesia. SURGEON: Estiven Sims MD [employer] SUPERINTENDENT: ANESTHESIA: Local with 1% Xylocaine. INDICATIONS FOR THE PROCEDURE: The patient is a 25-year-old man with a several day history of a developing abscess of the left buttock. This may actually represent a perirectal abscess which is pointing at the edge of the buttock on the left. He is now incision and drainage. DESCRIPTION OF PROCEDURE: The patient was positioned on his right side in the hospital bed. The area of the abscess was clearly identified. This area was prepped with Betadine. Local anesthesia was achieved with the infiltration of 1% Xylocaine. An approximately 2 to 2-1/2 cm incision was made with a scalpel with release of a large amount of purulent matter. The abscess cavity was probed gently to promote drainage. A wick of Betadine gauze was then inserted through the incision and a bulky bandage was applied. The patient tolerated the procedure well without apparent complication.
== END 2020-10-01 12:52 | disposition home or self-care (01) | DRG 383 ==
LOC: M ED 14:31 → M ED INP 21:06 → M MSPAV 23:42 → OBSVTOIN 09-28 08:30
PROVIDERS: ADMIT Family Medicine; ATTEND Internal Medicine
DX: L02.31 Cutaneous abscess of buttock (principal); F17.200 Nicotine dependence, unspecified, uncomplicated; F12.90 Cannabis use, unspecified, uncomplicated; Z79.899 Other long term (current) drug therapy

== ENCOUNTER 2021-02-15 22:13 | Emergency (ER) | payer OTHER, SELFPAY ==
[~2021-02-15] VITALS: Ht 162.6 cm; Wt 80.5 kg
[~2021-02-15 22:13] MED LIST changes: +ACET1TAB55 PO; +BACT800T5 PO; +PROB250C PO
[2021-02-15 22:15] VITALS: BP 124/72
[2021-02-16] MEDS ORDERED: DERMABOND TOPICAL SKIN ADHESIVE TOP ONE (01:00)
[2021-02-16] MEDS ORDERED: BOOSTRIX/ADACEL VACCINE (DIPHTH/PERTUSS/ACELL/TETANUS) 0.5ML SYR IM ONE (01:00)
== END 2021-02-16 01:15 | disposition home or self-care (01) ==
LOC: M ED 22:13
DX: S61.213A Laceration without foreign body of left middle finger without damage to nail, initial encounter (principal); W26.8XXA Contact with other sharp object(s), not elsewhere classified, initial encounter; Y92.009 Unspecified place in unspecified non-institutional (private) residence as the place of occurrence of the external cause; Y93.89 Activity, other specified; Y99.8 Other external cause status; F17.200 Nicotine dependence, unspecified, uncomplicated

== ENCOUNTER 2021-05-15 20:19 | Emergency (ER) | payer OTHER, SELFPAY ==
[~2021-05-15] VITALS: Ht 162.6 cm; Wt 75.6 kg
[2021-05-15 20:19] VITALS: BP 134/82
[~2021-05-15 20:19] MED LIST changes: +DOXY-443 PO; -DOXY100C37 PO
== END 2021-05-15 21:54 | disposition left against medical advice (07) ==
LOC: M ED 20:19
DX: Z53.21 Procedure and treatment not carried out due to patient leaving prior to being seen by health care provider (principal)

== ENCOUNTER → 2023-04-25 | Outpatient (CLI) | payer OTHER ==
[2023-04-25 15:03] LABS: BASO % 0.2 % (0.0-1.0); EOS # 0.8 10^3/uL (0.0-0.5); EOS % 6.5 % (0.0-3.0); HEMATOCRIT 47.2 % (42.0-52.0); HEMOGLOBIN 15.8 g/dl (13.5-17.5); LYMPH # 2.1 10^3/uL (1.5-5.0); LYMPH % 15.9 % (24.0-44.0); MEAN CORPUSCULAR HEMOGLOBIN 28.6 pg (27.0-33.0); MEAN CORPUSCULAR HGB CONC 33.5 g/dl (32.0-36.5); MEAN CORPUSCULAR VOLUME 85.4 fl (80.0-96.0); MONO # 0.9 10^3/uL (0.0-0.8); NEUTROPHILS # 9.1 10^3/uL (1.5-8.5); NEUTROPHILS % 70.1 % (36.0-66.0); PLATELET COUNT, AUTOMATED 260 10^3/uL (150-450); RED BLOOD COUNT 5.53 10^6/uL (4.30-6.10)
[2023-04-25 15:17] LABS: ERYTHROCYTE SEDIMENTATION RATE 16 mm/hr (0-15)
[2023-04-25 15:36] LABS: ALBUMIN 4.5 G/DL (3.2-5.2); ALKALINE PHOSPHATASE 109 U/L (46-116); ALT/SGPT 64 U/L (7.0-40); AST/SGOT 20 U/L (<34); BILIRUBIN,TOTAL 0.6 MG/DL (0.3-1.2); BLOOD UREA NITROGEN 7 MG/DL (9-23); CALCIUM LEVEL 9.9 MG/DL (8.5-10.1); CARBON DIOXIDE LEVEL 29 MMOL/L (20-31); CHLORIDE LEVEL 104 MMOL/L (98-107); CREATININE FOR GFR 0.91 MG/DL (0.70-1.30); GLOMERULAR FILTRATION RATE > 60.0 (>60); GLUCOSE, FASTING 91 MG/DL (60-100); POTASSIUM SERUM 4.4 MMOL/L (3.5-5.1); SODIUM LEVEL 140 MMOL/L (136-145); TOTAL PROTEIN 7.6 G/DL (5.7-8.2)
== END ==
LOC: M PLALAB 10:01
PROVIDERS: ATTEND Physician Assistant Medical
DX: R68.83 Chills (without fever) (principal); J02.9 Acute pharyngitis, unspecified; R06.02 Shortness of breath; M79.10 Myalgia, unspecified site

== ENCOUNTER → 2023-12-12 | Outpatient (CLI) | payer OTHER | LOC: M PLAIMG 14:41 | PROVIDERS: ATTEND Physician Assistant | DX: M25.562 Pain in left knee (principal) ==

== ENCOUNTER 2023-12-26 17:22 | Emergency (ER) | payer OTHER ==
[~2023-12-26] VITALS: Ht 167.6 cm; Wt 84.8 kg
[2023-12-26 17:23] VITALS: BP 133/79; TEMP 97.9; O2SAT 99
[2023-12-26 19:59] LABS: BASO % 0.4 % (0.0-1.0); EOS % 10.8 % (0.0-3.0); HEMOGLOBIN 14.5 g/dl (13.5-17.5); LYMPH # 3.3 10^3/uL (1.5-5.0); MEAN CORPUSCULAR HEMOGLOBIN 27.8 pg (27.0-33.0); MEAN CORPUSCULAR HGB CONC 33.7 g/dl (32.0-36.5); MEAN CORPUSCULAR VOLUME 82.4 fl (80.0-96.0); MONO # 0.7 10^3/uL (0.0-0.8); NEUTROPHILS # 4.3 10^3/uL (1.5-8.5); NEUTROPHILS % 46.5 % (36.0-66.0); PLATELET COUNT, AUTOMATED 256 10^3/uL (150-450); RED BLOOD COUNT 5.22 10^6/uL (4.30-6.10); WHITE BLOOD COUNT 9.3 10^3/uL (4.0-10.0)
[2023-12-26 20:32] LABS: LIPASE 29 U/L (12-53)
[2023-12-26 20:35] LABS: ALBUMIN 4.2 G/DL (3.2-5.2); ALKALINE PHOSPHATASE 105 U/L (46-116); ALT/SGPT 108 U/L (7.0-40); AST/SGOT 47 U/L (<34); BILIRUBIN,DIRECT < 0.1 MG/DL (<0.4); BILIRUBIN,TOTAL 0.3 MG/DL (0.3-1.2); BLOOD UREA NITROGEN 13 MG/DL (9-23); CALCIUM LEVEL 9.6 MG/DL (8.5-10.1); CARBON DIOXIDE LEVEL 27 MMOL/L (20-31); CHLORIDE LEVEL 103 MMOL/L (98-107); GLOMERULAR FILTRATION RATE > 60.0 (>60); GLUCOSE, FASTING 86 MG/DL (60-100); POTASSIUM SERUM 4.1 MMOL/L (3.5-5.1); SODIUM LEVEL 140 MMOL/L (136-145); TOTAL PROTEIN 7.1 G/DL (5.7-8.2)
== END 2023-12-26 20:46 | disposition left against medical advice (07) ==
LOC: M ED 17:22
DX: Z53.21 Procedure and treatment not carried out due to patient leaving prior to being seen by health care provider (principal)

== ENCOUNTER → 2024-01-02 | Outpatient (CLI) | payer OTHER ==
[~2024-01-02] MED LIST changes: +DOXY-323 PO; -DOXY-443 PO; +GASTROGRAFIN SOLUTION 30ML As Ordered ONE; +ISOVUE-370 76% 100ML VIAL As Ordered ONE
== END ==
LOC: M RAD 09:46
PROVIDERS: ATTEND Physician Assistant
DX: K92.1 Melena (principal); R10.30 Lower abdominal pain, unspecified; T39.395A Adverse effect of other nonsteroidal anti-inflammatory drugs [NSAID], initial encounter
CPT/HCPCS: 74177; Q9963; Q9967

== ENCOUNTER → 2024-01-11 | Outpatient (CLI) | payer OTHER ==
[~2024-01-11] MED LIST changes: -DOXY-323 PO; +DOXY-443 PO; -GASTROGRAFIN SOLUTION 30ML As Ordered ONE; -ISOVUE-370 76% 100ML VIAL As Ordered ONE
== END ==
LOC: M RAD 14:26
PROVIDERS: ATTEND Physician Assistant
DX: M25.562 Pain in left knee (principal)

== ENCOUNTER → 2024-04-08 | Outpatient (REF) | payer OTHER ==
[~2024-04-08] MED LIST changes: +DOXY-323 PO; -DOXY-443 PO
== END ==
LOC: M SFHCPLAZ 15:05
PROVIDERS: ATTEND Physician Assistant
DX: R09.81 Nasal congestion (principal); J02.9 Acute pharyngitis, unspecified